=== PATIENT | male | born 1945 | race Caucasian/White ===

== ENCOUNTER 2017-04-22 21:02 | Inpatient (IN) | payer MEDICARE, MEDICAID ==
[2017-04-22] VITALS: BP 165/82
[~2017-04-22] VITALS: Ht 182.9 cm; Wt 86.0 kg
[~2017-04-22 21:02] MED LIST: AMLO5TAB4 PO; ASCO500C15 PO; ATRO2DRO4; BACL10TA PO; CLON-529 PO; DILT120C88 PO; DOCU-28 PO; GABA-532 PO; HYDR-565 PO; MAGN400T6 PO; METF500T PO; METH1TAB32 PO; METO-467 PO; MULT-685 PO; NAPR-1115 PO; OMEP20TA23 PO; POLY119P2 PO; PRAV20TA PO; PSYL3.4P5 PO; SACC250C; VENL37.55 PO; temazepam 15mg capsule PO PRN
[2017-04-22] MEDS ORDERED: vancomycin/NS 1 GM ADD-VANTAGE 250 ML IV ONE (21:35)
[2017-04-22] MEDS ORDERED: piperacillin/tazo 3.375gm/50ml 50 ML IV ONE (21:35)
[2017-04-22 22:03] LABS: BASOPHILS % (AUTO) 0.2 % (0-1); EOSINOPHILS # (AUTO) 0.7 X10'3 (0-0.9); EOSINOPHILS % (AUTO) 6.6 % (0-6); HEMATOCRIT 22.2 % (42.0-52.0); HEMOGLOBIN 7.1 g/dl (14.0-17.9); LYMPHOCYTES # (AUTO) 1.1 X10'3 (1.1-4.8); LYMPHOCYTES % (AUTO) 9.5 % (21-51); MEAN CORPUSCULAR HGB CONC 31.9 % (33.0-36.5); MEAN CORPUSCULAR VOLUME 75.3 FL (78-98); MEAN PLATELET VOLUME 6.4 FL (7.4-10.4); MONOCYTES # (AUTO) 0.9 X10'3 (0-0.9); MONOCYTES % (AUTO) 8.1 % (2-12); NEUTROPHILS # (AUTO) 8.4 X10'3 (1.8-7.7); NEUTROPHILS % (AUTO) 75.6 % (42-75); PLATELET COUNT 284 X10'3 (140-440); RED BLOOD COUNT 2.95 X10'6 (4.70-6.10); WHITE BLOOD COUNT 11.1 X10'3 (4.5-11.0)
[2017-04-22 22:14] LABS: PARTIAL THROMBOPLASTIN TIME 30 SECONDS (22-32)
[2017-04-22 22:25] LABS: ALANINE AMINOTRANSFERASE 35 U/L (12-78); ALBUMIN 1.9 G/DL (3.4-5.0); ALBUMIN/GLOBULIN RATIO 0.4 (1.1-1.5); ALKALINE PHOSPHATASE 100 IU/L (46-116); ANION GAP 8 (8-16); ASPARTATE AMINO TRANSFERASE 39 U/L (10-37); BILIRUBIN,TOTAL 0.3 MG/DL (0.1-1.0); BLOOD UREA NITROGEN 31 MG/DL (7-18); BUN/CREATININE RATIO 12.4 (5.4-32.0); CALCIUM 8.7 MG/DL (8.5-10.1); CHLORIDE 102 MMOL/L (99-107); GLUCOSE 235 MG/DL (70-104); MAGNESIUM 2.2 MG/DL (1.5-2.4); SODIUM 137 MMOL/L (135-145); TOTAL CARBON DIOXIDE 26.9 MMOL/L (24-32); TOTAL PROTEIN 7.3 G/DL (6.4-8.2); eGFR 25 ML/MIN
[2017-04-22] MEDS: normal saline 1000ml 1,000 ML IV SCH (22:43)
[2017-04-22] MEDS ORDERED: baclofen 10mg tablet PO PRN (22:45)
[2017-04-22] MEDS ORDERED: insulin Lispro (HumaLOG) vial - multi-dose SQ SCH (22:45)
[2017-04-22] MEDS ORDERED: bisacodyl 10mg suppository rectal RC PRN (22:45)
[2017-04-22] MEDS ORDERED: dextrose ORAL solution 15 GM/59 ML bottle PO PRN ×2 (22:45)
[2017-04-22] MEDS ORDERED: metoclopramide 5 mg/ml inj IV PRN (22:45)
[2017-04-22] MEDS ORDERED: acetaminophen 325mg tablet PO PRN ×2 (22:45)
[2017-04-22] MEDS ORDERED: diphenhydrAMINE 50 mg/ml inj IV PRN (22:45)
[2017-04-22] MEDS ORDERED: MESSAGE TO PHARMACY PO ONE (22:45)
[2017-04-22] MEDS ORDERED: mag hydrox/Alum hydrox/simeth 30ml oral suspension PO PRN (22:45)
[2017-04-22] MEDS ORDERED: acetaminophen 650mg rectal suppository RC PRN (22:45)
[2017-04-22] MEDS ORDERED: diphenhydrAMINE 25mg capsule PO PRN (22:45)
[2017-04-22] MEDS ORDERED: HYDROcodone/acetaminophen 10/325mg tab PO PRN (22:45)
[2017-04-22] MEDS ORDERED: ondansetron/PF 4mg/2ml inj IV PRN (22:45)
[2017-04-22] MEDS ORDERED: morphine sulfate 8 MG/ML SYRINGE IV PRN ×2 (22:45)
[2017-04-22] MEDS ORDERED: magnesium hydroxide 30ml (MOM) UD suspension PO PRN (22:45)
[2017-04-22] MEDS ORDERED: glucagon, human recombinant 1mg kit SUBCUT PRN (22:45)
[2017-04-22] MEDS ORDERED: dextrose 50%-water 50ml dispensing syringe IV PRN ×2 (22:45)
[2017-04-22 23:04] LABS: HEMOGLOBIN A1C 7.2 % (4.5-6.2)
[2017-04-22 23:16] LABS: PHOSPHORUS 4.2 MG/DL (2.3-4.5)
[2017-04-23] VITALS (11 sets, daily range): BP systolic 105–142; BP diastolic 47–66
[2017-04-23] MEDS ORDERED: HYDROcodone/acetaminophen 10/325mg tab PO SCH (02:00)
[2017-04-23 06:04] LABS: BASOPHILS % (AUTO) 0 % (0-1); EOSINOPHILS # (AUTO) 0.7 X10'3 (0-0.9); HEMATOCRIT 22.8 % (42.0-52.0); HEMOGLOBIN 7.1 g/dl (14.0-17.9); LYMPHOCYTES # (AUTO) 0.3 X10'3 (1.1-4.8); LYMPHOCYTES % (AUTO) 2.2 % (21-51); MEAN CORPUSCULAR HEMOGLOBIN 23.4 PG (27.0-31.0); MEAN CORPUSCULAR HGB CONC 30.9 % (33.0-36.5); MEAN CORPUSCULAR VOLUME 75.8 FL (78-98); MEAN PLATELET VOLUME 6.5 FL (7.4-10.4); MONOCYTES # (AUTO) 0.6 X10'3 (0-0.9); MONOCYTES % (AUTO) 3.9 % (2-12); NEUTROPHILS # (AUTO) 13.2 X10'3 (1.8-7.7); NEUTROPHILS % (AUTO) 88.9 % (42-75); PLATELET COUNT 300 X10'3 (140-440); RED BLOOD COUNT 3.01 X10'6 (4.70-6.10); WHITE BLOOD COUNT 14.9 X10'3 (4.5-11.0)
[2017-04-23 07:02] LABS: ALANINE AMINOTRANSFERASE 37 U/L (12-78); ALBUMIN 1.8 G/DL (3.4-5.0); ALBUMIN/GLOBULIN RATIO 0.4 (1.1-1.5); ALKALINE PHOSPHATASE 90 IU/L (46-116); ANION GAP 10 (8-16); ASPARTATE AMINO TRANSFERASE 28 U/L (10-37); BILIRUBIN,TOTAL 0.4 MG/DL (0.1-1.0); BLOOD UREA NITROGEN 30 MG/DL (7-18); BUN/CREATININE RATIO 11.7 (5.4-32.0); CALCIUM 8.5 MG/DL (8.5-10.1); CHLORIDE 106 MMOL/L (99-107); CREATININE 2.56 MG/DL (0.60-1.10); GLUCOSE 111 MG/DL (70-104); POTASSIUM 5.2 MMOL/L (3.5-5.1); SODIUM 140 MMOL/L (135-145); TOTAL CARBON DIOXIDE 23.7 MMOL/L (24-32); TOTAL PROTEIN 6.9 G/DL (6.4-8.2); eGFR 25 ML/MIN
[2017-04-23] MEDS ORDERED: dexamethasone inj 10 MG in normal saline 100ml IV soln 100 ML IV ONE (07:30)
[2017-04-23] MEDS: pantoprazole 40mg Tablet.DR PO SCH (07:30)
[2017-04-23] MEDS ORDERED: diphenhydrAMINE 50 mg/ml inj IV ONE (07:30)
[2017-04-23] MEDS ORDERED: acetaminophen 325mg tablet PO ONE (07:30)
[2017-04-23] MEDS: amLODIPine 5mg tablet PO SCH ×2 (08:00→22:15)
[2017-04-23] MEDS: psyllium seed 3.4 gm packet PO SCH (08:00)
[2017-04-23] MEDS: loratadine 10mg tablet PO SCH (08:00)
[2017-04-23] MEDS: diltiazem CD 120mg capsule (once-daily) PO SCH (08:00)
[2017-04-23] MEDS: gabapentin 300mg capsule PO SCH ×4 (08:00→21:00)
[2017-04-23] MEDS: docusate sod 100mg capsule PO SCH ×2 (08:00→20:00)
[2017-04-23] MEDS ORDERED: vancomycin/NS 1 GM ADD-VANTAGE 250 ML IV SCH (08:00)
[2017-04-23] MEDS: cloNIDine 0.1 mg tablet PO SCH ×2 (08:00→22:15)
[2017-04-23] MEDS: metoprolol tartrate 50mg tablet PO SCH ×2 (08:00→22:15)
[2017-04-23] MEDS: piperacillin-tazo 2.25gm/50ml 50 ML IV SCH ×2 (09:08→16:00)
[2017-04-23] MEDS: baclofen 10mg tablet PO SCH ×4 (09:08→22:18)
[2017-04-23] MEDS: normal saline 1000ml 1,000 ML IV SCH (09:11)
[2017-04-23] MEDS: venlafaxine XR 37.5mg cap (Q24H) PO SCH (09:11)
[2017-04-23] MEDS ORDERED: furosemide 40mg/4ml inj IV ONE (09:30)
[2017-04-23 09:45] LABS: PRE OP PARTIAL THROMB. TIME 30 SECONDS (22-35); PROTHROMBIN TIME 10.2 SECONDS (9.0-12.0)
[2017-04-23] MEDS: vancomycin inj 1,250 MG in normal saline 250ml IV soln 250 ML IV SCH ×2 (11:00→22:15)
[2017-04-23 14:27] LABS: ABG BASE EXCESS -2.6 mmol/L (-2.0-3.0); ABG HCO3 22.8 mmol/L (22.0-26.0); ABG PCO2 (T) 41.9 mmHg (35.0-48.0); ABG PH (T) 7.353 (7.350-7.450); ABG PO2 (T) 71.6 mmHg (83-108); ALLEN'S TEST Positive; FO2Hb 92.1 % (94-100); RESPIRATORY RATE (OBSERVED) 16 b/min; TOTAL HEMOGLOBIN 6.5 G/dl (14.0-18.0)
[2017-04-23] MEDS: pravastatin 10mg tablet PO SCH (22:16)
[2017-04-24] VITALS (21 sets, daily range): BP systolic 119–156; BP diastolic 52–81
[2017-04-24] MEDS: piperacillin-tazo 2.25gm/50ml 50 ML IV SCH ×2 (00:30→07:35)
[2017-04-24] MEDS: diltiazem CD 120mg capsule (once-daily) PO SCH (07:37)
[2017-04-24] MEDS: metoprolol tartrate 50mg tablet PO SCH ×2 (07:37→20:00)
[2017-04-24] MEDS: baclofen 10mg tablet PO SCH ×3 (07:37→20:56)
[2017-04-24] MEDS: gabapentin 300mg capsule PO SCH ×3 (07:37→20:56)
[2017-04-24] MEDS: cloNIDine 0.1 mg tablet PO SCH ×2 (07:37→20:00)
[2017-04-24] MEDS: amLODIPine 5mg tablet PO SCH ×2 (07:37→20:11)
[2017-04-24] MEDS: loratadine 10mg tablet PO SCH (07:37)
[2017-04-24] MEDS: pantoprazole 40mg Tablet.DR PO SCH (07:37)
[2017-04-24] MEDS: docusate sod 100mg capsule PO SCH ×2 (07:39→20:18)
[2017-04-24] MEDS: psyllium seed 3.4 gm packet PO SCH (07:40)
[2017-04-24] MEDS: venlafaxine XR 37.5mg cap (Q24H) PO SCH (07:43)
[2017-04-24 08:30] LABS: BASOPHILS % (AUTO) 0 % (0-1); EOSINOPHILS # (AUTO) 0.3 X10'3 (0-0.9); EOSINOPHILS % (AUTO) 1.7 % (0-6); HEMATOCRIT 27.8 % (42.0-52.0); LYMPHOCYTES # (AUTO) 0.4 X10'3 (1.1-4.8); LYMPHOCYTES % (AUTO) 2.4 % (21-51); MEAN CORPUSCULAR HEMOGLOBIN 25.3 PG (27.0-31.0); MEAN CORPUSCULAR HGB CONC 32.5 % (33.0-36.5); MEAN CORPUSCULAR VOLUME 77.9 FL (78-98); MEAN PLATELET VOLUME 6.6 FL (7.4-10.4); MONOCYTES # (AUTO) 0.7 X10'3 (0-0.9); MONOCYTES % (AUTO) 4.7 % (2-12); NEUTROPHILS # (AUTO) 14.3 X10'3 (1.8-7.7); NEUTROPHILS % (AUTO) 91.2 % (42-75); PLATELET COUNT 297 X10'3 (140-440); RED BLOOD COUNT 3.56 X10'6 (4.70-6.10); WHITE BLOOD COUNT 15.7 X10'3 (4.5-11.0)
[2017-04-24 08:45] LABS: ALANINE AMINOTRANSFERASE 27 U/L (12-78); ALBUMIN 1.8 G/DL (3.4-5.0); ALBUMIN/GLOBULIN RATIO 0.3 (1.1-1.5); ALKALINE PHOSPHATASE 75 IU/L (46-116); ANION GAP 10 (8-16); ASPARTATE AMINO TRANSFERASE 13 U/L (10-37); BILIRUBIN,TOTAL 0.8 MG/DL (0.1-1.0); BLOOD UREA NITROGEN 40 MG/DL (7-18); BUN/CREATININE RATIO 15.6 (5.4-32.0); CHLORIDE 107 MMOL/L (99-107); CREATININE 2.57 MG/DL (0.60-1.10); GLUCOSE 166 MG/DL (70-104); POTASSIUM 4.2 MMOL/L (3.5-5.1); SODIUM 141 MMOL/L (135-145); TOTAL CARBON DIOXIDE 24.1 MMOL/L (24-32); TOTAL PROTEIN 7.2 G/DL (6.4-8.2); eGFR 25 ML/MIN
[2017-04-24] MEDS: vancomycin inj 1,250 MG in normal saline 250ml IV soln 250 ML IV SCH (08:56)
[2017-04-24] MEDS: normal saline 1000ml 1,000 ML IV SCH (08:57)
[2017-04-24] MEDS ORDERED: cefepime 1GM/100ML NS ADD-VANTAGE BAG IV SCH (10:15)
[2017-04-24] MEDS ORDERED: cloNIDine hcl/PF 100mcg/ml inj ONE (15:36)
[2017-04-24] MEDS ORDERED: desflurane 240ml liquid inh. IH ONE (16:30)
[2017-04-24] MEDS ORDERED: midazolam 2 mg/2 ml injection ONE (16:43)
[2017-04-24] MEDS ORDERED: fentaNYL/PF 50MCG/1 ML 2ML syringe ONE (16:43)
[2017-04-24] MEDS ORDERED: LIDOcaine 2% 5ml jelly ONE (16:45)
[2017-04-24] MEDS ORDERED: normal saline 1000ml 1,000 ML IV SCH (17:22)
[2017-04-24] MEDS ORDERED: meperidine/PF 25mg/ml syringe IV PRN (17:25)
[2017-04-24] MEDS ORDERED: ondansetron/PF 4mg/2ml inj IV PRN (17:25)
[2017-04-24] MEDS ORDERED: meperidine/PF 25mg/ml syringe IV ONE (17:25)
[2017-04-24] MEDS ORDERED: morphine sulfate 8 MG/ML SYRINGE IV PRN (17:25)
[2017-04-24] MEDS ORDERED: proCHLORperazine 10 MG/2 ml inj IV PRN (17:25)
[2017-04-24] MEDS ORDERED: LIDOcaine 2% (20mg/ml) 5ml vial ONE (18:04)
[2017-04-24] MEDS ORDERED: rocuronium 10mg/ml inj IV ONE (18:04)
[2017-04-24] MEDS ORDERED: propofol inj 20 ML IV ONE (18:04)
[2017-04-24] MEDS ORDERED: VANCOMYCIN LEVEL IV ONE (19:30)
[2017-04-24] MEDS: lactobacillus rhamnosus 10,000 MMU CELLS/CAPSULE PO SCH (20:12)
[2017-04-24] MEDS: pravastatin 10mg tablet PO SCH (20:57)
[2017-04-25] VITALS: BP 147/61
[2017-04-25] MEDS: normal saline 1000ml 1,000 ML IV SCH ×3 (00:05→10:09)
[2017-04-25 04:00] VITALS: BP 151/73
[2017-04-25 05:59] LABS: BASOPHILS % (AUTO) 0.3 % (0-1); EOSINOPHILS # (AUTO) 0.4 X10'3 (0-0.9); EOSINOPHILS % (AUTO) 3.6 % (0-6); HEMATOCRIT 27.6 % (42.0-52.0); HEMOGLOBIN 8.9 g/dl (14.0-17.9); LYMPHOCYTES # (AUTO) 0.8 X10'3 (1.1-4.8); MEAN CORPUSCULAR HEMOGLOBIN 25.2 PG (27.0-31.0); MEAN CORPUSCULAR HGB CONC 32.1 % (33.0-36.5); MEAN CORPUSCULAR VOLUME 78.4 FL (78-98); MEAN PLATELET VOLUME 6.5 FL (7.4-10.4); MONOCYTES # (AUTO) 0.8 X10'3 (0-0.9); MONOCYTES % (AUTO) 8.2 % (2-12); NEUTROPHILS % (AUTO) 79.9 % (42-75); PLATELET COUNT 283 X10'3 (140-440); RED BLOOD COUNT 3.52 X10'6 (4.70-6.10); RED CELL DISTRIBUTION WIDTH 17.1 % (11.5-14.5); WHITE BLOOD COUNT 9.9 X10'3 (4.5-11.0)
[2017-04-25 06:28] LABS: ALANINE AMINOTRANSFERASE 19 U/L (12-78); ALBUMIN 1.8 G/DL (3.4-5.0); ALBUMIN/GLOBULIN RATIO 0.4 (1.1-1.5); ALKALINE PHOSPHATASE 59 IU/L (46-116); ANION GAP 10 (8-16); ASPARTATE AMINO TRANSFERASE 12 U/L (10-37); BILIRUBIN,TOTAL 0.4 MG/DL (0.1-1.0); BLOOD UREA NITROGEN 38 MG/DL (7-18); BUN/CREATININE RATIO 16.2 (5.4-32.0); CALCIUM 8.5 MG/DL (8.5-10.1); CHLORIDE 110 MMOL/L (99-107); CREATININE 2.34 MG/DL (0.60-1.10); GLUCOSE 98 MG/DL (70-104); POTASSIUM 3.9 MMOL/L (3.5-5.1); SODIUM 144 MMOL/L (135-145); TOTAL CARBON DIOXIDE 24.2 MMOL/L (24-32); TOTAL PROTEIN 6.9 G/DL (6.4-8.2); eGFR 27 ML/MIN
[2017-04-25 07:00] VITALS: BP 132/63
[2017-04-25] MEDS: loratadine 10mg tablet PO SCH (07:25)
[2017-04-25] MEDS: pantoprazole 40mg Tablet.DR PO SCH (07:25)
[2017-04-25] MEDS: docusate sod 100mg capsule PO SCH ×2 (07:25→19:46)
[2017-04-25] MEDS: venlafaxine XR 37.5mg cap (Q24H) PO SCH (07:25)
[2017-04-25] MEDS: lactobacillus rhamnosus 10,000 MMU CELLS/CAPSULE PO SCH ×2 (07:25→17:23)
[2017-04-25] MEDS: gabapentin 300mg capsule PO SCH ×4 (07:26→22:05)
[2017-04-25] MEDS: baclofen 10mg tablet PO SCH ×4 (07:26→22:05)
[2017-04-25] MEDS: amLODIPine 5mg tablet PO SCH ×2 (07:26→19:46)
[2017-04-25] MEDS: psyllium seed 3.4 gm packet PO SCH (07:26)
[2017-04-25] MEDS: metoprolol tartrate 50mg tablet PO SCH ×2 (08:00→19:46)
[2017-04-25] MEDS: diltiazem CD 120mg capsule (once-daily) PO SCH (08:00)
[2017-04-25] MEDS: cloNIDine 0.1 mg tablet PO SCH ×2 (08:00→19:46)
[2017-04-25] MEDS: CEFEPIME 2 GM in NS 100ml IV.SOLN 100 ML IV SCH (09:08)
[2017-04-25] MEDS: vancomycin inj 1,250 MG in normal saline 250ml IV soln 250 ML IV SCH (10:09)
[2017-04-25 11:00] VITALS: BP 128/66
[2017-04-25] MEDS: HYDROcodone/acetaminophen 5mg/325mg tablet PO PRN (13:03)
[2017-04-25 19:00] VITALS: BP 136/59
[2017-04-25] MEDS: pravastatin 10mg tablet PO SCH (22:05)
[2017-04-26] VITALS: BP 130/69
[2017-04-26] MEDS: normal saline 1000ml 1,000 ML IV SCH ×3 (00:43→16:49)
[2017-04-26 05:21] LABS: BASOPHILS % (AUTO) 0.1 % (0-1); EOSINOPHILS # (AUTO) 0.6 X10'3 (0-0.9); EOSINOPHILS % (AUTO) 4.8 % (0-6); HEMATOCRIT 26.5 % (42.0-52.0); HEMOGLOBIN 8.5 g/dl (14.0-17.9); LYMPHOCYTES # (AUTO) 0.7 X10'3 (1.1-4.8); LYMPHOCYTES % (AUTO) 6.2 % (21-51); MEAN CORPUSCULAR HGB CONC 32.1 % (33.0-36.5); MEAN CORPUSCULAR VOLUME 77.7 FL (78-98); MEAN PLATELET VOLUME 6.8 FL (7.4-10.4); MONOCYTES % (AUTO) 8.5 % (2-12); NEUTROPHILS # (AUTO) 9.7 X10'3 (1.8-7.7); NEUTROPHILS % (AUTO) 80.4 % (42-75); PLATELET COUNT 243 X10'3 (140-440); RED BLOOD COUNT 3.41 X10'6 (4.70-6.10)
[2017-04-26 05:39] LABS: ALANINE AMINOTRANSFERASE 15 U/L (12-78); ALBUMIN 1.8 G/DL (3.4-5.0); ALBUMIN/GLOBULIN RATIO 0.4 (1.1-1.5); ALKALINE PHOSPHATASE 58 IU/L (46-116); ANION GAP 9 (8-16); ASPARTATE AMINO TRANSFERASE 17 U/L (10-37); BILIRUBIN,TOTAL 0.4 MG/DL (0.1-1.0); BLOOD UREA NITROGEN 35 MG/DL (7-18); BUN/CREATININE RATIO 17.3 (5.4-32.0); CALCIUM 8.1 MG/DL (8.5-10.1); CHLORIDE 109 MMOL/L (99-107); CREATININE 2.02 MG/DL (0.60-1.10); GLUCOSE 166 MG/DL (70-104); POTASSIUM 3.4 MMOL/L (3.5-5.1); SODIUM 139 MMOL/L (135-145); TOTAL CARBON DIOXIDE 20.6 MMOL/L (24-32); TOTAL PROTEIN 6.5 G/DL (6.4-8.2); eGFR 33 ML/MIN
[2017-04-26] MEDS: pantoprazole 40mg Tablet.DR PO SCH (07:30)
[2017-04-26 08:00] VITALS: BP 132/81
[2017-04-26] MEDS: diltiazem CD 120mg capsule (once-daily) PO SCH (09:11)
[2017-04-26] MEDS: psyllium seed 3.4 gm packet PO SCH (09:11)
[2017-04-26] MEDS: CEFEPIME 2 GM in NS 100ml IV.SOLN 100 ML IV SCH (09:11)
[2017-04-26] MEDS: baclofen 10mg tablet PO SCH ×4 (09:11→21:49)
[2017-04-26] MEDS: loratadine 10mg tablet PO SCH (09:11)
[2017-04-26] MEDS: lactobacillus rhamnosus 10,000 MMU CELLS/CAPSULE PO SCH ×2 (09:11→17:49)
[2017-04-26] MEDS: amLODIPine 5mg tablet PO SCH ×2 (09:12→21:48)
[2017-04-26] MEDS: cloNIDine 0.1 mg tablet PO SCH ×2 (09:12→21:49)
[2017-04-26] MEDS: gabapentin 300mg capsule PO SCH ×4 (09:12→21:48)
[2017-04-26] MEDS: docusate sod 100mg capsule PO SCH ×2 (09:12→21:49)
[2017-04-26] MEDS: metoprolol tartrate 50mg tablet PO SCH ×2 (09:12→21:49)
[2017-04-26] MEDS: vancomycin inj 1,250 MG in normal saline 250ml IV soln 250 ML IV SCH (11:32)
[2017-04-26] MEDS: venlafaxine XR 37.5mg cap (Q24H) PO SCH (11:33)
[2017-04-26] MEDS ORDERED: potassium Cl 20 mEq SR tablet PO PRN (11:45)
[2017-04-26] MEDS ORDERED: magnesium 2GM in 50ml NS 50 ML IV PRN (11:45)
[2017-04-26] MEDS ORDERED: potassium Cl 40MEQ/NS 500ml 500 ML IV PRN ×2 (11:45)
[2017-04-26] MEDS ORDERED: magnesium 4gm in 100ml NS 100 ML IV PRN (11:45)
[2017-04-26] MEDS ORDERED: magnesium Cl slow-release 64mg tablet PO PRN (11:45)
[2017-04-26 12:00] VITALS: BP 123/59
[2017-04-26] MEDS: protein shake 8oz. (237ml) PO SCH ×2 (13:00→18:00)
[2017-04-26] MEDS: potassium Cl 20 mEq SR tablet PO PRN (15:39)
[2017-04-26 18:00] VITALS: BP 127/64
[2017-04-27] VITALS: BP 116/58
[2017-04-27] MEDS: normal saline 1000ml 1,000 ML IV SCH ×3 (00:24→22:43)
[2017-04-27] MEDS: potassium Cl 20 mEq SR tablet PO PRN (00:24)
[2017-04-27 07:04] LABS: BASOPHILS % (AUTO) 0.3 % (0-1); EOSINOPHILS # (AUTO) 0.6 X10'3 (0-0.9); EOSINOPHILS % (AUTO) 6.1 % (0-6); HEMATOCRIT 25.9 % (42.0-52.0); HEMOGLOBIN 8.4 g/dl (14.0-17.9); LYMPHOCYTES # (AUTO) 0.9 X10'3 (1.1-4.8); LYMPHOCYTES % (AUTO) 10.1 % (21-51); MEAN CORPUSCULAR HEMOGLOBIN 25.3 PG (27.0-31.0); MEAN CORPUSCULAR HGB CONC 32.5 % (33.0-36.5); MEAN CORPUSCULAR VOLUME 77.9 FL (78-98); MEAN PLATELET VOLUME 6.5 FL (7.4-10.4); MONOCYTES % (AUTO) 11.2 % (2-12); NEUTROPHILS # (AUTO) 6.6 X10'3 (1.8-7.7); NEUTROPHILS % (AUTO) 72.3 % (42-75); PLATELET COUNT 220 X10'3 (140-440); RED BLOOD COUNT 3.32 X10'6 (4.70-6.10); RED CELL DISTRIBUTION WIDTH 17.8 % (11.5-14.5); WHITE BLOOD COUNT 9.2 X10'3 (4.5-11.0)
[2017-04-27 07:22] LABS: ALANINE AMINOTRANSFERASE 19 U/L (12-78); ALBUMIN 1.8 G/DL (3.4-5.0); ALBUMIN/GLOBULIN RATIO 0.4 (1.1-1.5); ALKALINE PHOSPHATASE 63 IU/L (46-116); ANION GAP 9 (8-16); ASPARTATE AMINO TRANSFERASE 15 U/L (10-37); BILIRUBIN,TOTAL 0.3 MG/DL (0.1-1.0); BLOOD UREA NITROGEN 30 MG/DL (7-18); BUN/CREATININE RATIO 15.1 (5.4-32.0); CHLORIDE 113 MMOL/L (99-107); CREATININE 1.99 MG/DL (0.60-1.10); GLUCOSE 160 MG/DL (70-104); MAGNESIUM 1.8 MG/DL (1.5-2.4); POTASSIUM 4.1 MMOL/L (3.5-5.1); SODIUM 144 MMOL/L (135-145); TOTAL CARBON DIOXIDE 22.1 MMOL/L (24-32); TOTAL PROTEIN 6.2 G/DL (6.4-8.2); eGFR 33 ML/MIN
[2017-04-27 07:26] LABS: VANCOMYCIN,TROUGH 34.8 UG/ML (6.0-14.0)
[2017-04-27] MEDS ORDERED: VANCOMYCIN LEVEL IV ONE (07:30)
[2017-04-27 07:37] VITALS: BP 119/56
[2017-04-27] MEDS: protein shake 8oz. (237ml) PO SCH ×3 (08:00→19:00)
[2017-04-27] MEDS: multivitamins, therapeutics tablet PO SCH (08:00)
[2017-04-27] MEDS: CEFEPIME 2 GM in NS 100ml IV.SOLN 100 ML IV SCH (08:00)
[2017-04-27] MEDS: docusate sod 100mg capsule PO SCH ×2 (09:32→19:49)
[2017-04-27] MEDS: psyllium seed 3.4 gm packet PO SCH (09:32)
[2017-04-27] MEDS: lactobacillus rhamnosus 10,000 MMU CELLS/CAPSULE PO SCH ×2 (09:32→17:01)
[2017-04-27] MEDS: metoprolol tartrate 50mg tablet PO SCH ×2 (09:33→19:48)
[2017-04-27] MEDS: diltiazem CD 120mg capsule (once-daily) PO SCH (09:33)
[2017-04-27] MEDS: baclofen 10mg tablet PO SCH ×4 (09:33→22:05)
[2017-04-27] MEDS: loratadine 10mg tablet PO SCH (09:33)
[2017-04-27] MEDS: atorvastatin 10mg tablet PO SCH (09:33)
[2017-04-27] MEDS: pantoprazole 40mg Tablet.DR PO SCH (09:33)
[2017-04-27] MEDS: cloNIDine 0.1 mg tablet PO SCH ×2 (09:33→19:48)
[2017-04-27] MEDS: gabapentin 300mg capsule PO SCH ×4 (10:02→22:04)
[2017-04-27] MEDS: venlafaxine XR 37.5mg cap (Q24H) PO SCH (10:02)
[2017-04-27] MEDS: amLODIPine 5mg tablet PO SCH ×2 (10:03→19:48)
[2017-04-27 11:00] VITALS: BP 123/54
[2017-04-27 19:30] VITALS: BP 138/57
[2017-04-27] MEDS: HYDROcodone/acetaminophen 5mg/325mg tablet PO PRN (19:50)
[2017-04-28] VITALS: BP 116/52
[2017-04-28 04:20] LABS: MAGNESIUM 1.5 MG/DL (1.5-2.4); POTASSIUM 3.5 MMOL/L (3.5-5.1)
[2017-04-28 07:00] VITALS: BP 126/60
[2017-04-28] MEDS ORDERED: VANCOMYCIN LEVEL IV ONE (07:30)
[2017-04-28] MEDS: diltiazem CD 120mg capsule (once-daily) PO SCH (07:42)
[2017-04-28] MEDS: lactobacillus rhamnosus 10,000 MMU CELLS/CAPSULE PO SCH (07:42)
[2017-04-28] MEDS: pantoprazole 40mg Tablet.DR PO SCH (07:42)
[2017-04-28] MEDS: gabapentin 300mg capsule PO SCH ×2 (07:42→13:37)
[2017-04-28] MEDS: atorvastatin 10mg tablet PO SCH (07:42)
[2017-04-28] MEDS: docusate sod 100mg capsule PO SCH (07:42)
[2017-04-28] MEDS: metoprolol tartrate 50mg tablet PO SCH (07:42)
[2017-04-28] MEDS: loratadine 10mg tablet PO SCH (07:42)
[2017-04-28] MEDS: amLODIPine 5mg tablet PO SCH (07:42)
[2017-04-28] MEDS: baclofen 10mg tablet PO SCH ×2 (07:42→13:37)
[2017-04-28] MEDS: cloNIDine 0.1 mg tablet PO SCH (07:42)
[2017-04-28] MEDS: venlafaxine XR 37.5mg cap (Q24H) PO SCH (07:42)
[2017-04-28] MEDS: CEFEPIME 2 GM in NS 100ml IV.SOLN 100 ML IV SCH (07:43)
[2017-04-28] MEDS: psyllium seed 3.4 gm packet PO SCH (07:46)
[2017-04-28] MEDS: protein shake 8oz. (237ml) PO SCH ×2 (08:00→13:00)
[2017-04-28] MEDS ORDERED: vancomycin inj 1,250 MG in normal saline 250ml IV soln 250 ML IV SCH (08:00)
[2017-04-28] MEDS: multivitamins, therapeutics tablet PO SCH (08:50)
[2017-04-28] MEDS: normal saline 1000ml 1,000 ML IV SCH (08:50)
[2017-04-28 11:00] VITALS: BP 120/56
[2017-04-28 11:23] LABS: CHLORIDE 112 MMOL/L (99-107); GLUCOSE 153 MG/DL (70-104); SODIUM 142 MMOL/L (135-145)
[2017-04-28 11:24] LABS: ALBUMIN 1.8 G/DL (3.4-5.0); ANION GAP 11 (8-16); BLOOD UREA NITROGEN 30 MG/DL (7-18); BUN/CREATININE RATIO 15.1 (5.4-32.0); CALCIUM 7.7 MG/DL (8.5-10.1); CREATININE 1.99 MG/DL (0.60-1.10); TOTAL CARBON DIOXIDE 18.8 MMOL/L (24-32); eGFR 33 ML/MIN
[2017-05-02] MEDS ORDERED: VANCOMYCIN LEVEL IV ONE (07:30)
== END 2017-04-28 16:30 | DRG 239 ==
LOC: ER 21:03 → ED HOLD 22:43 → EDBEDREQ 22:57 → CMPBEDREQ 23:56 → SUR 3N 04-23 00:48
PROVIDERS: ADMIT Family Medicine; ATTEND Family Medicine
PROC: 30233N1 Transfusion of Nonautologous Red Blood Cells into Peripheral Vein, Percutaneous Approach (ICD-10-PCS; 2017-04-23)
PROC: 30233N1 Transfusion of Nonautologous Red Blood Cells into Peripheral Vein, Percutaneous Approach (ICD-10-PCS; 2017-04-24)
PROC: 0Y6H0Z1 Detachment at Right Lower Leg, High, Open Approach (ICD-10-PCS; principal; 2017-04-24 16:30)
DX: E11.52 Type 2 diabetes mellitus with diabetic peripheral angiopathy with gangrene (principal); E43 Unspecified severe protein-calorie malnutrition; N17.0 Acute kidney failure with tubular necrosis; G93.40 Encephalopathy, unspecified; L89.109 Pressure ulcer of unspecified part of back, unspecified stage; E11.22 Type 2 diabetes mellitus with diabetic chronic kidney disease; G83.9 Paralytic syndrome, unspecified; E11.621 Type 2 diabetes mellitus with foot ulcer; L03.115 Cellulitis of right lower limb; M86.8X6 Other osteomyelitis, lower leg; B95.62 Methicillin resistant Staphylococcus aureus infection as the cause of diseases classified elsewhere; B96.20 Unspecified Escherichia coli [E. coli] as the cause of diseases classified elsewhere; E11.65 Type 2 diabetes mellitus with hyperglycemia; L97.519 Non-pressure chronic ulcer of other part of right foot with unspecified severity; N18.9 Chronic kidney disease, unspecified; I12.9 Hypertensive chronic kidney disease with stage 1 through stage 4 chronic kidney disease, or unspecified chronic kidney disease; D63.8 Anemia in other chronic diseases classified elsewhere; E11.69 Type 2 diabetes mellitus with other specified complication; Z68.25 Body mass index [BMI] 25.0-25.9, adult; Z74.01 Bed confinement status; Z89.512 Acquired absence of left leg below knee; Z79.899 Other long term (current) drug therapy
CPT/HCPCS: 36415; 36600; 70450; 71010; 80048; 80053; 80202; 82803; 82948; 83036; 83605; 83735; 83880; 84100; 84145; 85018; 85025; 85610; 85730; 86870; 86880; 86885; 86900; 86901; 86902; 86905; 86922; 87040; 87070; 93005; 96374; 99285; A4315; A4649; A6209; A6212; A6213; A6222; A6223; A6255; A6446; A6449; A7000; J0692; J0735; J1100; J1200; J1940; J2001; J2175; J2250; J2543; J2704; J3010; J3370; J7030; J7120; P9016

== ENCOUNTER 2017-05-10 01:47 | Emergency (ER) | payer MEDICARE, MEDICAID ==
[~2017-05-10] VITALS: Ht 172.7 cm; Wt 85.0 kg
[~2017-05-10 01:47] MED LIST changes: -AMLO5TAB4 PO; -ASCO500C15 PO; -ATRO2DRO4; -CLON-529 PO; -DILT120C88 PO; -DOCU-28 PO; -MAGN400T6 PO; -METF500T PO; -METH1TAB32 PO; -METO-467 PO; -MULT-685 PO; -NAPR-1115 PO; -OMEP20TA23 PO; -POLY119P2 PO; -PRAV20TA PO; -PSYL3.4P5 PO; -SACC250C; -VENL37.55 PO; -temazepam 15mg capsule PO PRN
[2017-05-10] MEDS ORDERED: tranexamic acid inj. 1,000 MG in normal saline 100ml IV soln 90 ML IV ONE (01:50)
[2017-05-10] MEDS ORDERED: normal saline 1000ML IV soln IV ONE (01:50)
[2017-05-10] MEDS ORDERED: tranexamic acid 100mg/ml inj. ONE (02:22)
[2017-05-10 02:35] LABS: BASOPHILS # (AUTO) 0.1 X10'3 (0-0.2); BASOPHILS % (AUTO) 0.9 % (0-1); EOSINOPHILS # (AUTO) 0.4 X10'3 (0-0.9); EOSINOPHILS % (AUTO) 7.8 % (0-6); HEMATOCRIT 27.6 % (42.0-52.0); HEMOGLOBIN 8.9 g/dl (14.0-17.9); LYMPHOCYTES # (AUTO) 1.1 X10'3 (1.1-4.8); LYMPHOCYTES % (AUTO) 19.3 % (21-51); MEAN CORPUSCULAR HEMOGLOBIN 25.6 PG (27.0-31.0); MEAN CORPUSCULAR HGB CONC 32.3 % (33.0-36.5); MEAN CORPUSCULAR VOLUME 79.2 FL (78-98); MEAN PLATELET VOLUME 8.3 FL (7.4-10.4); MONOCYTES # (AUTO) 0.7 X10'3 (0-0.9); MONOCYTES % (AUTO) 11.9 % (2-12); NEUTROPHILS # (AUTO) 3.3 X10'3 (1.8-7.7); NEUTROPHILS % (AUTO) 60.1 % (42-75); PLATELET COUNT 135 X10'3 (140-440); RED BLOOD COUNT 3.49 X10'6 (4.70-6.10); WHITE BLOOD COUNT 5.6 X10'3 (4.5-11.0)
[2017-05-10 02:45] LABS: PROTHROMBIN TIME 10.2 SECONDS (9.0-12.0)
[2017-05-10 02:51] LABS: ALANINE AMINOTRANSFERASE 15 U/L (12-78); ALBUMIN 2.6 G/DL (3.4-5.0); ALBUMIN/GLOBULIN RATIO 0.5 (1.1-1.5); ALKALINE PHOSPHATASE 75 IU/L (46-116); ANION GAP 8 (8-16); ASPARTATE AMINO TRANSFERASE 14 U/L (10-37); BILIRUBIN,TOTAL 0.4 MG/DL (0.1-1.0); BLOOD UREA NITROGEN 39 MG/DL (7-18); BUN/CREATININE RATIO 16.5 (5.4-32.0); CALCIUM 8.8 MG/DL (8.5-10.1); CHLORIDE 105 MMOL/L (99-107); CREATININE 2.37 MG/DL (0.60-1.10); GLUCOSE 98 MG/DL (70-104); MAGNESIUM 1.8 MG/DL (1.5-2.4); POTASSIUM 4.6 MMOL/L (3.5-5.1); SODIUM 142 MMOL/L (135-145); TOTAL CARBON DIOXIDE 29.3 MMOL/L (24-32); TOTAL PROTEIN 7.6 G/DL (6.4-8.2); eGFR 27 ML/MIN
[2017-05-10 02:52] LABS: UA COLLECTION TYPE FOLEY CATH
[2017-05-10 03:03] LABS: BACTERIA,URINE 1+ /HPF (Neg); RBC,URINE TNTC /HPF (0-2); SQUAMOUS EPITHELIAL CELL,UR NONE SEEN /LPF (FEW); WBC,URINE 50-100 /HPF (0-4)
[2017-05-10 03:04] LABS: MUCUS STRANDS NONE SEEN /LPF (Neg)
[2017-05-10 03:05] LABS: WBC CLUMPS,URINE MODERATE /HPF (NEGATIVE)
[2017-05-10] MEDS ORDERED: CEPH500C5 PO (03:53)
[2017-05-10] MEDS ORDERED: CefTRIAXone 2gm/NS 100ml IVPB 100 ML IV ONE (03:55)
[2017-05-10 05:51] VITALS: BP 145/61
== END 2017-05-10 05:53 | disposition home or self-care (01) ==
LOC: ER 01:48
DX: N39.0 Urinary tract infection, site not specified (principal); R31.9 Hematuria, unspecified; I10 Essential (primary) hypertension; E11.9 Type 2 diabetes mellitus without complications; Z86.14 Personal history of Methicillin resistant Staphylococcus aureus infection
CPT/HCPCS: 36415; 80053; 81001; 83735; 84145; 85025; 85610; 87077; 87088; 87186; 96361; 96374; 96375; 99284; A4315; J0696; J7030

== ENCOUNTER 2017-07-01 10:30 | Inpatient (IN) | payer MEDICARE, OTHER, MEDICAID ==
[2017-07-01] VITALS (17 sets, daily range): BP systolic 107–170; BP diastolic 43–96
[~2017-07-01] VITALS: Ht 121.9 cm; Wt 86.8 kg
[~2017-07-01 10:30] MED LIST changes: +CEPH500C5 PO
[2017-07-01] MEDS ORDERED: vancomycin inj 1,500 MG in normal saline 300ml IV soln IV ONE (12:46)
[2017-07-01] MEDS ORDERED: cefazolin/dext.iso 2gm/50ml 50 ML IV ONE (12:50)
[2017-07-01] MEDS ORDERED: famotidine 20mg tablet PO ONE (12:50)
[2017-07-01] MEDS ORDERED: ringers solution, lacted 1,000 ML IV SCH (12:50)
[2017-07-01] MEDS ORDERED: FERR325T28 PO (13:00)
[2017-07-01] MEDS ORDERED: DOCU-28 PO (13:00)
[2017-07-01] MEDS ORDERED: EFF37.5XRC PO (13:00)
[2017-07-01] MEDS ORDERED: ASCO500C15 PO (13:00)
[2017-07-01] MEDS ORDERED: ACET-2119 PO (13:00)
[2017-07-01] MEDS ORDERED: PSYL1PAC9 PO (13:00)
[2017-07-01] MEDS ORDERED: ATOR40TA PO (13:00)
[2017-07-01] MEDS ORDERED: METO50TA17 PO (13:00)
[2017-07-01] MEDS ORDERED: DILT120C88 PO (13:00)
[2017-07-01] MEDS ORDERED: METH1TAB32 PO (13:00)
[2017-07-01] MEDS ORDERED: OMEP20TA5 PO (13:00)
[2017-07-01] MEDS ORDERED: LORA10TA7 PO (13:00)
[2017-07-01] MEDS ORDERED: SACC250C PO (13:00)
[2017-07-01] MEDS ORDERED: AMLO2.5T2 PO (13:00)
[2017-07-01] MEDS ORDERED: magnesium hydroxide 30ml (MOM) UD suspension PO PRN (13:05)
[2017-07-01] MEDS ORDERED: ondansetron/PF 4mg/2ml inj IV PRN (13:05)
[2017-07-01] MEDS ORDERED: bisacodyl 10mg suppository rectal RC PRN (13:05)
[2017-07-01] MEDS ORDERED: HYDROmorphone inj. 0.5 MG/0.5 ML DISP.SYRIN IV PRN ×2 (13:05)
[2017-07-01] MEDS ORDERED: oxyCODONE/APAP 10/325mg tablet PO PRN (13:05)
[2017-07-01] MEDS ORDERED: diphenhydrAMINE 25mg capsule PO PRN ×2 (13:05)
[2017-07-01] MEDS ORDERED: ePHEDrine 50MG/ML INJ. ONE (13:15)
[2017-07-01] MEDS ORDERED: sevoflurane 250ml liquid IH ONE (13:15)
[2017-07-01] MEDS ORDERED: fentaNYL /PF 50mcg/ml 5ml ampule ONE (13:16)
[2017-07-01] MEDS ORDERED: rocuronium 10mg/ml inj IV ONE (13:25)
[2017-07-01] MEDS ORDERED: propofol inj 20 ML IV ONE (13:25)
[2017-07-01] MEDS ORDERED: LIDOcaine 2% (20mg/ml) 5ml vial ONE (13:25)
[2017-07-01] MEDS ORDERED: glycopyrrolate 0.2mg/ml inj ONE (14:51)
[2017-07-01] MEDS ORDERED: ondansetron/PF 4mg/2ml inj ONE (14:51)
[2017-07-01] MEDS ORDERED: neostigmine methylsulfate 1 MG/ML 10ml vial ONE (14:51)
[2017-07-01] MEDS: potassium cl 20mEq in 1/2 NS 1,000 ML IV SCH (16:16)
[2017-07-01] MEDS: baclofen 10mg tablet PO SCH ×2 (16:39→20:51)
[2017-07-01 16:40] LABS: eGFR 27 ML/MIN
[2017-07-01] MEDS: ceFAZolin 2gm in dextrose, iso 50 ML IV SCH (17:09)
[2017-07-01] MEDS: oxyCODONE/APAP 10/325mg tablet PO PRN ×2 (17:22→20:59)
[2017-07-01] MEDS: sennosides 8.6mg tablet PO SCH (20:48)
[2017-07-01] MEDS: metoprolol tartrate 50mg tablet PO SCH (20:49)
[2017-07-01] MEDS: gabapentin 300mg capsule PO SCH (20:49)
[2017-07-01] MEDS: amLODIPine 5mg tablet PO SCH (20:50)
[2017-07-01] MEDS: ascorbic acid 500mg tablet PO SCH (20:50)
[2017-07-01] MEDS: docusate sod 100mg capsule PO SCH (20:50)
[2017-07-01] MEDS: atorvastatin 20mg tablet PO SCH (20:53)
[2017-07-01] MEDS: lactobacillus rhamnosus 10,000 MMU CELLS/CAPSULE PO SCH (20:59)
[2017-07-02] MEDS: ceFAZolin 2gm in dextrose, iso 50 ML IV SCH (00:18)
[2017-07-02] MEDS: potassium cl 20mEq in 1/2 NS 1,000 ML IV SCH ×2 (00:18→18:58)
[2017-07-02 02:06] VITALS: BP 125/69
[2017-07-02] MEDS ORDERED: ringers solution, lacted 1,000 ML IV SCH (05:00)
[2017-07-02 05:30] LABS: BASOPHILS % (AUTO) 0.1 % (0-1); EOSINOPHILS # (AUTO) 0.4 X10'3 (0-0.9); EOSINOPHILS % (AUTO) 6.1 % (0-6); HEMATOCRIT 28.5 % (42.0-52.0); HEMOGLOBIN 9.3 g/dl (14.0-17.9); LYMPHOCYTES # (AUTO) 0.3 X10'3 (1.1-4.8); LYMPHOCYTES % (AUTO) 4.5 % (21-51); MEAN CORPUSCULAR HEMOGLOBIN 26.7 PG (27.0-31.0); MEAN CORPUSCULAR HGB CONC 32.5 % (33.0-36.5); MEAN CORPUSCULAR VOLUME 82.1 FL (78-98); MEAN PLATELET VOLUME 8.1 FL (7.4-10.4); MONOCYTES # (AUTO) 0.6 X10'3 (0-0.9); MONOCYTES % (AUTO) 9.3 % (2-12); NEUTROPHILS # (AUTO) 4.9 X10'3 (1.8-7.7); PLATELET COUNT 140 X10'3 (140-440); RED BLOOD COUNT 3.47 X10'6 (4.70-6.10); RED CELL DISTRIBUTION WIDTH 21.1 % (11.5-14.5); WHITE BLOOD COUNT 6.1 X10'3 (4.5-11.0)
[2017-07-02] MEDS ORDERED: famotidine 20mg tablet PO ONE (05:30)
[2017-07-02] MEDS ORDERED: vancomycin inj 1,500 MG in normal saline 300ml IV soln IV ONE (05:30)
[2017-07-02] MEDS ORDERED: cefazolin/dext.iso 2gm/50ml 50 ML IV ONE ×2 (05:30→12:45)
[2017-07-02 05:47] LABS: ANION GAP 13 (8-16); CHLORIDE 102 MMOL/L (99-107); POTASSIUM 4.7 MMOL/L (3.5-5.1); SODIUM 139 MMOL/L (135-145); TOTAL CARBON DIOXIDE 24.2 MMOL/L (24-32)
[2017-07-02 06:00] VITALS: BP 114/59
[2017-07-02] MEDS: docusate sod 100mg capsule PO SCH (07:34)
[2017-07-02] MEDS: lactobacillus rhamnosus 10,000 MMU CELLS/CAPSULE PO SCH ×2 (07:35→20:00)
[2017-07-02] MEDS: loratadine 10mg tablet PO SCH (07:35)
[2017-07-02] MEDS: diltiazem CD 120mg capsule (once-daily) PO SCH (07:35)
[2017-07-02] MEDS: ascorbic acid 500mg tablet PO SCH ×2 (07:35→20:00)
[2017-07-02] MEDS: pantoprazole 40mg Tablet.DR PO SCH (07:35)
[2017-07-02] MEDS: gabapentin 300mg capsule PO SCH (07:35)
[2017-07-02] MEDS: multivitamins, therapeutics tablet PO SCH (07:35)
[2017-07-02] MEDS: venlafaxine XR 37.5mg cap (Q24H) PO SCH (07:36)
[2017-07-02] MEDS: baclofen 10mg tablet PO SCH ×3 (07:36→16:52)
[2017-07-02] MEDS: psyllium seed 3.4 gm packet PO SCH (07:37)
[2017-07-02] MEDS: amLODIPine 5mg tablet PO SCH ×2 (07:37→20:00)
[2017-07-02] MEDS: metoprolol tartrate 50mg tablet PO SCH ×2 (07:37→20:00)
[2017-07-02] MEDS ORDERED: enoxaparin 40mg/0.4ml syringe SQ SCH (08:00)
[2017-07-02] MEDS ORDERED: methenamine hippurate 1gm tablet PO SCH (08:00)
[2017-07-02 08:03] LABS: HEMOGLOBIN A1C 6.7 % (4.5-6.2)
[2017-07-02] MEDS: oxyCODONE/APAP 10/325mg tablet PO PRN (08:48)
[2017-07-02 10:00] VITALS: BP 115/44
[2017-07-02] MEDS ORDERED: VANCOMYCIN LEVEL IV ONE (12:30)
[2017-07-02] MEDS: vancomycin inj 1,250 MG in normal saline 250ml IV soln 250 ML IV SCH (13:44)
[2017-07-02] MEDS: NUT.TX.GLUC.INTOLER,LAC-FR,REG (BOOST GLUCOSE CONTROL) 237 ML PO SCH ×2 (13:52→18:00)
[2017-07-02] MEDS ORDERED: enoxaparin 30mg/0.3ml syringe SQ SCH (15:19)
[2017-07-02 15:29] VITALS: BP 136/46
[2017-07-02] MEDS: acetaminophen 325mg tablet PO PRN (15:39)
[2017-07-02] MEDS ORDERED: naloxone 0.4 mg/ml inj ONE (16:07)
[2017-07-02] MEDS ORDERED: naloxone 0.4 mg/ml inj IV ONE ×2 (16:10)
[2017-07-02 18:43] VITALS: BP 148/58
[2017-07-02] MEDS: atorvastatin 20mg tablet PO SCH (21:00)
[2017-07-02] MEDS: sennosides 8.6mg tablet PO SCH (21:00)
[2017-07-02] MEDS ORDERED: metoclopramide 5 mg/ml inj IV PRN (22:25)
[2017-07-02] MEDS ORDERED: proCHLORperazine 10 MG/2 ml inj IV PRN (22:30)
[2017-07-02 22:41] LABS: ABG BASE EXCESS -7.5 mmol/L (-2.0-3.0); ABG HCO3 19.5 mmol/L (22.0-26.0); ABG OXYGEN SATURATION 94.6 % (95-98); ABG PCO2 (T) 47.1 mmHg (35.0-48.0); ABG PH (T) 7.237 (7.350-7.450); ABG PO2 (T) 88.7 mmHg (83-108); FCOHb 0.2 % (0.5-1.5); FLOW 15 L/min; FMetHb 0.1 % (0.3-1.12); FO2Hb 94.3 % (94-100); PATIENT TEMPERATURE 37.3; RESPIRATORY RATE (OBSERVED) 22 b/min; TOTAL HEMOGLOBIN 9.6 G/dl (14.0-18.0)
[2017-07-02 22:54] LABS: BASOPHILS % (AUTO) 0.1 % (0-1); EOSINOPHILS # (AUTO) 0.3 X10'3 (0-0.9); HEMATOCRIT 27.3 % (42.0-52.0); LYMPHOCYTES # (AUTO) 0.5 X10'3 (1.1-4.8); LYMPHOCYTES % (AUTO) 4.9 % (21-51); MEAN CORPUSCULAR HEMOGLOBIN 26.9 PG (27.0-31.0); MEAN CORPUSCULAR HGB CONC 32.9 % (33.0-36.5); MEAN CORPUSCULAR VOLUME 81.8 FL (78-98); MEAN PLATELET VOLUME 7.7 FL (7.4-10.4); MONOCYTES # (AUTO) 0.7 X10'3 (0-0.9); NEUTROPHILS # (AUTO) 8.4 X10'3 (1.8-7.7); PLATELET COUNT 135 X10'3 (140-440); RED BLOOD COUNT 3.33 X10'6 (4.70-6.10); RED CELL DISTRIBUTION WIDTH 20.9 % (11.5-14.5); WHITE BLOOD COUNT 9.9 X10'3 (4.5-11.0)
[2017-07-02] MEDS ORDERED: albuterol 2.5 MG/3 ML nebule ONE (22:54)
[2017-07-02] MEDS: albuterol 2.5 MG/3 ML nebule NEB SCH (22:56)
[2017-07-02 23:02] VITALS: BP 139/60
[2017-07-02 23:02] LABS: ALBUMIN 2.6 G/DL (3.4-5.0); ANION GAP 15 (8-16); BLOOD UREA NITROGEN 53 MG/DL (7-18); BUN/CREATININE RATIO 16.5 (5.4-32.0); CALCIUM 8.2 MG/DL (8.5-10.1); CHLORIDE 102 MMOL/L (99-107); CREATININE 3.22 MG/DL (0.60-1.10); GLUCOSE 195 MG/DL (70-104); POTASSIUM 4.5 MMOL/L (3.5-5.1); SODIUM 136 MMOL/L (135-145); TOTAL CARBON DIOXIDE 19.2 MMOL/L (24-32); eGFR 19 ML/MIN
[2017-07-02] MEDS ORDERED: cefepime 2g/NS 100ml ADVANTAGE 100 ML IV ONE (23:38)
[2017-07-02] MEDS ORDERED: cefepime 2gm inj IV SCH (23:40)
[2017-07-02] MEDS ORDERED: CEFEPIME 1 GM IV ONE (23:50)
[2017-07-02] MEDS: sodium chloride 0.45% 1,000 ML IV SCH (23:58)
[2017-07-03] VITALS (8 sets, daily range): BP systolic 134–160; BP diastolic 46–150
[2017-07-03] MEDS: docusate sod 100mg capsule PO SCH ×3 (00:19→21:18)
[2017-07-03 01:00] LABS: CLARITY,URINE CLOUDY (Clear); COLOR,URINE YELLOW (Yellow); GLUCOSE, URINE NEGATIVE (Neg); KETONES,URINE NEGATIVE (Neg); LEUKOCYTE ESTERASE ,URINE LARGE (Neg); NITRITES, URINE POSITIVE (Neg); OCCULT BLOOD,URINE MODERATE (Neg); PH,URINE 5.5 (4.8-8.0); PROTEIN,URINE 30 mg/dl (Neg); UROBILINOGEN,URINE 0.2 E.U/dL (0.2-1.0)
[2017-07-03 01:08] LABS: UA COLLECTION TYPE FOLEY CATH; WBC,URINE TNTC /HPF (0-4)
[2017-07-03 01:09] LABS: BACTERIA,URINE 4+ /HPF (Neg); RBC,URINE 20-50 /HPF (0-2); SQUAMOUS EPITHELIAL CELL,UR FEW /LPF (FEW)
[2017-07-03] MEDS: albuterol 2.5 MG/3 ML nebule NEB SCH ×6 (04:06→23:54)
[2017-07-03] MEDS: acetaminophen 325mg tablet PO PRN (04:37)
[2017-07-03 06:32] LABS: BASOPHILS % (AUTO) 0.1 % (0-1); EOSINOPHILS # (AUTO) 0.1 X10'3 (0-0.9); EOSINOPHILS % (AUTO) 0.6 % (0-6); HEMATOCRIT 25.3 % (42.0-52.0); HEMOGLOBIN 8.5 g/dl (14.0-17.9); LYMPHOCYTES # (AUTO) 0.4 X10'3 (1.1-4.8); LYMPHOCYTES % (AUTO) 3.5 % (21-51); MEAN CORPUSCULAR HEMOGLOBIN 27.2 PG (27.0-31.0); MEAN CORPUSCULAR HGB CONC 33.5 % (33.0-36.5); MEAN CORPUSCULAR VOLUME 81.2 FL (78-98); MEAN PLATELET VOLUME 8.1 FL (7.4-10.4); MONOCYTES # (AUTO) 0.9 X10'3 (0-0.9); NEUTROPHILS # (AUTO) 9.4 X10'3 (1.8-7.7); NEUTROPHILS % (AUTO) 87.8 % (42-75); PLATELET COUNT 121 X10'3 (140-440); RED BLOOD COUNT 3.12 X10'6 (4.70-6.10); RED CELL DISTRIBUTION WIDTH 19.9 % (11.5-14.5); WHITE BLOOD COUNT 10.8 X10'3 (4.5-11.0)
[2017-07-03] MEDS: loratadine 10mg tablet PO SCH (08:00)
[2017-07-03] MEDS: multivitamins, therapeutics tablet PO SCH (08:00)
[2017-07-03] MEDS: ascorbic acid 500mg tablet PO SCH ×2 (08:00→21:17)
[2017-07-03] MEDS: psyllium seed 3.4 gm packet PO SCH (08:00)
[2017-07-03] MEDS: metoprolol tartrate 50mg tablet PO SCH ×2 (08:00→21:17)
[2017-07-03] MEDS: pantoprazole 40mg Tablet.DR PO SCH (08:00)
[2017-07-03] MEDS: amLODIPine 5mg tablet PO SCH ×2 (08:00→21:17)
[2017-07-03] MEDS: venlafaxine XR 37.5mg cap (Q24H) PO SCH (08:00)
[2017-07-03] MEDS: lactobacillus rhamnosus 10,000 MMU CELLS/CAPSULE PO SCH ×2 (08:00→21:18)
[2017-07-03] MEDS: NUT.TX.GLUC.INTOLER,LAC-FR,REG (BOOST GLUCOSE CONTROL) 237 ML PO SCH ×3 (08:00→18:00)
[2017-07-03] MEDS: diltiazem CD 120mg capsule (once-daily) PO SCH (08:00)
[2017-07-03] MEDS: enoxaparin 30mg/0.3ml syringe SQ SCH (08:13)
[2017-07-03] MEDS ORDERED: dextrose ORAL solution 15 GM/59 ML bottle PO PRN ×2 (10:00)
[2017-07-03] MEDS ORDERED: dextrose 50%-water 50ml dispensing syringe IV PRN ×2 (10:00)
[2017-07-03] MEDS ORDERED: MESSAGE TO PHARMACY PO ONE (10:00)
[2017-07-03] MEDS ORDERED: glucagon, human recombinant 1mg kit SUBCUT PRN (10:00)
[2017-07-03] MEDS: vancomycin inj 1,250 MG in normal saline 250ml IV soln 250 ML IV SCH (13:31)
[2017-07-03] MEDS: insulin Lispro (HumaLOG) vial - multi-dose SQ SCH ×3 (15:12→19:21)
[2017-07-03] MEDS ORDERED: cefepime inj. 0.5 GM in normal saline 100ml IV soln 100 ML IV SCH (21:00)
[2017-07-03] MEDS: sennosides 8.6mg tablet PO SCH (21:00)
[2017-07-03] MEDS ORDERED: insulin glargine (Lantus) pen - multi-dose SQ SCH (21:00)
[2017-07-03] MEDS: atorvastatin 20mg tablet PO SCH (21:17)
[2017-07-03] MEDS ORDERED: cefepime 2gm inj IV SCH (23:30)
[2017-07-04] MEDS: sodium chloride 0.45% 1,000 ML IV SCH (00:10)
[2017-07-04] MEDS: acetaminophen 325mg tablet PO PRN (02:24)
[2017-07-04] MEDS: albuterol 2.5 MG/3 ML nebule NEB SCH ×3 (04:29→10:56)
[2017-07-04 06:00] VITALS: BP 134/57
[2017-07-04 06:52] LABS: BASOPHILS % (AUTO) 0.1 % (0-1); EOSINOPHILS # (AUTO) 0.4 X10'3 (0-0.9); EOSINOPHILS % (AUTO) 4.2 % (0-6); HEMATOCRIT 23.8 % (42.0-52.0); LYMPHOCYTES # (AUTO) 0.6 X10'3 (1.1-4.8); LYMPHOCYTES % (AUTO) 6.1 % (21-51); MEAN CORPUSCULAR HEMOGLOBIN 27.2 PG (27.0-31.0); MEAN CORPUSCULAR HGB CONC 33.4 % (33.0-36.5); MEAN CORPUSCULAR VOLUME 81.5 FL (78-98); MEAN PLATELET VOLUME 8.2 FL (7.4-10.4); MONOCYTES # (AUTO) 0.9 X10'3 (0-0.9); MONOCYTES % (AUTO) 9.9 % (2-12); NEUTROPHILS # (AUTO) 7.6 X10'3 (1.8-7.7); NEUTROPHILS % (AUTO) 79.7 % (42-75); PLATELET COUNT 127 X10'3 (140-440); RED BLOOD COUNT 2.93 X10'6 (4.70-6.10); RED CELL DISTRIBUTION WIDTH 20.7 % (11.5-14.5); WHITE BLOOD COUNT 9.5 X10'3 (4.5-11.0)
[2017-07-04 07:28] LABS: ALANINE AMINOTRANSFERASE 9 U/L (12-78); ALBUMIN 2.1 G/DL (3.4-5.0); ALBUMIN/GLOBULIN RATIO 0.5 (1.1-1.5); ALKALINE PHOSPHATASE 54 IU/L (46-116); ANION GAP 16 (8-16); ASPARTATE AMINO TRANSFERASE 25 U/L (10-37); BILIRUBIN,TOTAL 0.3 MG/DL (0.1-1.0); BLOOD UREA NITROGEN 61 MG/DL (7-18); BUN/CREATININE RATIO 16.3 (5.4-32.0); CALCIUM 8.1 MG/DL (8.5-10.1); CHLORIDE 106 MMOL/L (99-107); CREATININE 3.74 MG/DL (0.60-1.10); GLUCOSE 117 MG/DL (70-104); POTASSIUM 3.7 MMOL/L (3.5-5.1); SODIUM 141 MMOL/L (135-145); TOTAL CARBON DIOXIDE 19.2 MMOL/L (24-32); TOTAL PROTEIN 6.6 G/DL (6.4-8.2); eGFR 16 ML/MIN
[2017-07-04] MEDS: NUT.TX.GLUC.INTOLER,LAC-FR,REG (BOOST GLUCOSE CONTROL) 237 ML PO SCH ×2 (08:00→13:00)
[2017-07-04] MEDS: insulin Lispro (HumaLOG) vial - multi-dose SQ SCH ×2 (08:42→14:08)
[2017-07-04] MEDS: pantoprazole 40mg Tablet.DR PO SCH (08:43)
[2017-07-04] MEDS: loratadine 10mg tablet PO SCH (08:43)
[2017-07-04] MEDS: ascorbic acid 500mg tablet PO SCH (08:43)
[2017-07-04] MEDS: multivitamins, therapeutics tablet PO SCH (08:43)
[2017-07-04] MEDS: docusate sod 100mg capsule PO SCH (08:43)
[2017-07-04] MEDS: metoprolol tartrate 50mg tablet PO SCH (08:43)
[2017-07-04] MEDS: diltiazem CD 120mg capsule (once-daily) PO SCH (08:43)
[2017-07-04] MEDS: venlafaxine XR 37.5mg cap (Q24H) PO SCH (08:43)
[2017-07-04] MEDS: lactobacillus rhamnosus 10,000 MMU CELLS/CAPSULE PO SCH (08:43)
[2017-07-04] MEDS: psyllium seed 3.4 gm packet PO SCH (08:43)
[2017-07-04] MEDS: amLODIPine 5mg tablet PO SCH (08:43)
[2017-07-04] MEDS: enoxaparin 30mg/0.3ml syringe SQ SCH (08:44)
[2017-07-04 10:00] VITALS: BP 122/47
[2017-07-04] MEDS: vancomycin inj 1,250 MG in normal saline 250ml IV soln 250 ML IV SCH (14:11)
[2017-07-05] MEDS ORDERED: VANCOMYCIN LEVEL IV ONE (12:30)
== END 2017-07-04 16:57 | DRG 475 ==
LOC: UNDOADMIN 10:30 → PAS IN 10:30 → ORTHO 4S 15:50
PROVIDERS: ADMIT Orthopaedic Surgery; ATTEND Internal Medicine
PROC: 0Y6C0Z1 Detachment at Right Upper Leg, High, Open Approach (ICD-10-PCS; principal; 2017-07-01 13:10)
DX: T87.53 Necrosis of amputation stump, right lower extremity (principal); E11.52 Type 2 diabetes mellitus with diabetic peripheral angiopathy with gangrene; L89.152 Pressure ulcer of sacral region, stage 2; E11.22 Type 2 diabetes mellitus with diabetic chronic kidney disease; G82.20 Paraplegia, unspecified; Z68.43 Body mass index [BMI] 50.0-59.9, adult; E66.9 Obesity, unspecified; D64.9 Anemia, unspecified; E78.5 Hyperlipidemia, unspecified; F32.9 Major depressive disorder, single episode, unspecified; I12.9 Hypertensive chronic kidney disease with stage 1 through stage 4 chronic kidney disease, or unspecified chronic kidney disease; Y83.5 Amputation of limb(s) as the cause of abnormal reaction of the patient, or of later complication, without mention of misadventure at the time of the procedure; K21.9 Gastro-esophageal reflux disease without esophagitis; N18.9 Chronic kidney disease, unspecified; Z89.512 Acquired absence of left leg below knee; Z79.899 Other long term (current) drug therapy; Z79.82 Long term (current) use of aspirin; Y92.89 Other specified places as the place of occurrence of the external cause
CPT/HCPCS: 36415; 36600; 71045; 80048; 80051; 80053; 80202; 81001; 82565; 82803; 82948; 83036; 83605; 85018; 85025; 87070; 87077; 87088; 87186; 88300; 94640; 94760; 97163; 97530; A4620; A6212; A6213; A6222; A6250; A6449; A7000; A9270; J0690; J0692; J0780; J1650; J1815; J2001; J2310; J2405; J2704; J2710; J3010; J3370; J3490; J7030; J7120

== ENCOUNTER → 2017-07-01 12:17 | Day surgery (SDC) | payer MEDICARE, MEDICAID, OTHER ==
[~2017-07-01 12:17] MED LIST changes: +ACET-2119 PO; +AMLO2.5T2 PO; +ASCO500C15 PO; +ATOR40TA PO; +DILT120C88 PO; +DOCU-28 PO; +EFF37.5XRC PO; +FERR325T28 PO; +LORA10TA7 PO; +METH1TAB32 PO; +METO50TA17 PO; +OMEP20TA5 PO; +PSYL1PAC9 PO; +SACC250C PO; +famotidine 20mg tablet PO ONE; +ringers solution, lacted 1,000 ML IV SCH
== END | disposition home or self-care (01) ==
LOC: PAS 12:17
PROVIDERS: ATTEND Orthopaedic Surgery
DX: T87.53 Necrosis of amputation stump, right lower extremity (principal)
CPT/HCPCS: 96365; J7120

== ENCOUNTER 2017-08-06 11:54 | Inpatient (IN) | payer MEDICARE, OTHER, MEDICAID ==
[~2017-08-06] VITALS: Ht 127 cm; Wt 81.8 kg
[~2017-08-06 11:54] MED LIST changes: -famotidine 20mg tablet PO ONE; -ringers solution, lacted 1,000 ML IV SCH
[2017-08-06 14:00] LABS: BASOPHILS # (AUTO) 0.1 X10'3 (0-0.2); BASOPHILS % (AUTO) 0.5 % (0-1); EOSINOPHILS # (AUTO) 0.6 X10'3 (0-0.9); EOSINOPHILS % (AUTO) 4.6 % (0-6); HEMATOCRIT 33.4 % (35.0-45.0); HEMOGLOBIN 11.1 g/dl (12.0-16.0); LYMPHOCYTES # (AUTO) 1.1 X10'3 (1.1-4.8); LYMPHOCYTES % (AUTO) 7.9 % (21-51); MEAN CORPUSCULAR HEMOGLOBIN 27.4 PG (27.0-31.0); MEAN CORPUSCULAR HGB CONC 33.3 % (33.0-36.5); MEAN CORPUSCULAR VOLUME 82.3 FL (78-98); MONOCYTES # (AUTO) 0.9 X10'3 (0-0.9); MONOCYTES % (AUTO) 6.3 % (2-12); NEUTROPHILS # (AUTO) 11.1 X10'3 (1.8-7.7); NEUTROPHILS % (AUTO) 80.7 % (42-75); PLATELET COUNT 217 X10'3 (140-440); RED BLOOD COUNT 4.05 X10'6 (4.20-5.60); RED CELL DISTRIBUTION WIDTH 17.6 % (11.5-14.5); WHITE BLOOD COUNT 13.8 X10'3 (4.5-11.0)
[2017-08-06 14:08] LABS: INR 0.9 INR; PARTIAL THROMBOPLASTIN TIME 30 SECONDS (22-32); PROTHROMBIN TIME 9.7 SECONDS (9.0-12.0)
[2017-08-06 14:14] LABS: ALANINE AMINOTRANSFERASE 17 U/L (12-78); ALBUMIN 3.3 G/DL (3.4-5.0); ALBUMIN/GLOBULIN RATIO 0.6 (1.1-1.5); ALKALINE PHOSPHATASE 103 IU/L (46-116); ANION GAP 10 (8-16); ASPARTATE AMINO TRANSFERASE 15 U/L (10-37); BILIRUBIN,TOTAL 0.4 MG/DL (0.1-1.0); BLOOD UREA NITROGEN 34 MG/DL (7-18); BUN/CREATININE RATIO 12.7 (6.6-38.0); CALCIUM 9.8 MG/DL (8.5-10.1); CHLORIDE 103 MMOL/L (99-107); CREATININE 2.68 MG/DL (0.40-0.90); GLUCOSE 134 MG/DL (70-104); POTASSIUM 4.5 MMOL/L (3.5-5.1); SODIUM 142 MMOL/L (135-145); TOTAL CARBON DIOXIDE 28.8 MMOL/L (24-32); TOTAL PROTEIN 9.2 G/DL (6.4-8.2); eGFR 17 ML/MIN
[2017-08-06 15:04] LABS: CLARITY,URINE CLOUDY (Clear); COLOR,URINE YELLOW (Yellow); GLUCOSE, URINE NEGATIVE (Neg); KETONES,URINE NEGATIVE (Neg); LEUKOCYTE ESTERASE ,URINE LARGE (Neg); NITRITES, URINE POSITIVE (Neg); OCCULT BLOOD,URINE LARGE (Neg); PH,URINE 6.5 (4.8-8.0); PROTEIN,URINE 100 mg/dl (Neg); UROBILINOGEN,URINE 0.2 E.U/dL (0.2-1.0)
[2017-08-06 15:06] LABS: UA COLLECTION TYPE FOLEY CATH
[2017-08-06 15:27] LABS: SQUAMOUS EPITHELIAL CELL,UR FEW /LPF (FEW)
[2017-08-06 15:28] LABS: BACTERIA,URINE FEW /HPF (Neg); RBC,URINE 20-50 /HPF (0-2); WBC CLUMPS,URINE MANY /HPF (NEGATIVE); WBC,URINE TNTC /HPF (0-4)
[2017-08-06] MEDS ORDERED: MULT-38 PO (15:49)
[2017-08-06] MEDS ORDERED: ONDA4TAB6 PO (15:49)
[2017-08-06] MEDS ORDERED: POLY17PO10 PO (15:49)
[2017-08-06] MEDS ORDERED: ondansetron/PF 4mg/2ml inj IV PRN (16:45)
[2017-08-06] MEDS ORDERED: acetaminophen 325mg tablet PO PRN (16:45)
[2017-08-06] MEDS ORDERED: morphine 4 MG/ML inj SYRINge IV PRN ×2 (16:45)
[2017-08-06] MEDS ORDERED: mag hydrox/Alum hydrox/simeth 30ml oral suspension PO PRN (16:45)
[2017-08-06] MEDS ORDERED: magnesium hydroxide 30ml (MOM) UD suspension PO PRN (16:45)
[2017-08-06] MEDS ORDERED: vancomycin/NS 1 GM ADD-VANTAGE 250 ML X 1 DOSE IV ONE (16:55)
[2017-08-06] MEDS: normal saline 1000ml 1,000 ML IV SCH (17:07)
[2017-08-06] MEDS: acetaminophen 325mg tablet PO SCH (19:03)
[2017-08-06] MEDS: ferrous sulfate 325mg tablet PO SCH (19:04)
[2017-08-06] MEDS: amLODIPine 2.5mg tablet PO SCH (19:18)
[2017-08-06] MEDS: lactobacillus rhamnosus 10,000 MMU CELLS/CAPSULE PO SCH (19:18)
[2017-08-06] MEDS: gabapentin 300mg capsule PO SCH (19:18)
[2017-08-06] MEDS: metoprolol tartrate 50mg tablet PO SCH (19:18)
[2017-08-06] MEDS: HYDROcodone/acetaminophen 10/325mg tab PO SCH (19:19)
[2017-08-06] MEDS: docusate sod 100mg capsule PO SCH (19:31)
[2017-08-06] MEDS: baclofen 10mg tablet PO PRN (19:31)
[2017-08-06] MEDS: ascorbic acid 500mg tablet PO SCH (19:31)
[2017-08-06] MEDS ORDERED: ondansetron 4mg rapidly disintigrating tab PO PRN (20:00)
[2017-08-06 23:00] VITALS: BP 120/56
[2017-08-07] VITALS (15 sets, daily range): BP systolic 103–144; BP diastolic 42–70
[2017-08-07] MEDS: cefepime 1GM/NS ADD-VANTAGE 100 ML IV SCH ×4 (00:19→23:29)
[2017-08-07] MEDS: atorvastatin 20mg tablet PO SCH ×2 (00:19→20:32)
[2017-08-07] MEDS: HYDROcodone/acetaminophen 10/325mg tab PO SCH ×4 (02:00→17:22)
[2017-08-07] MEDS: acetaminophen 325mg tablet PO SCH ×4 (02:00→20:33)
[2017-08-07] MEDS: normal saline 1000ml 1,000 ML IV SCH ×3 (02:42→22:56)
[2017-08-07] MEDS: VANCOMYCIN LEVEL IV SCH (03:00)
[2017-08-07 07:10] LABS: ALBUMIN 2.8 G/DL (3.4-5.0); ANION GAP 12 (8-16); BLOOD UREA NITROGEN 34 MG/DL (7-18); BUN/CREATININE RATIO 13.4 (6.6-38.0); CALCIUM 9.2 MG/DL (8.5-10.1); CHLORIDE 106 MMOL/L (99-107); CREATININE 2.54 MG/DL (0.40-0.90); GLUCOSE 120 MG/DL (70-104); POTASSIUM 4.2 MMOL/L (3.5-5.1); SODIUM 142 MMOL/L (135-145); TOTAL CARBON DIOXIDE 24.5 MMOL/L (24-32); VANCOMYCIN,RANDOM 24.7 UG/ML; eGFR 18 ML/MIN
[2017-08-07 07:55] LABS: HEMATOCRIT 32.3 % (42.0-52.0); HEMOGLOBIN 10.6 g/dl (14.0-17.9); MEAN CORPUSCULAR HEMOGLOBIN 27.6 PG (27.0-31.0); MEAN CORPUSCULAR HGB CONC 32.9 % (33.0-36.5); MEAN PLATELET VOLUME 8.6 FL (7.4-10.4); PLATELET COUNT 151 X10'3 (140-440); RED BLOOD COUNT 3.84 X10'6 (4.70-6.10); RED CELL DISTRIBUTION WIDTH 19.5 % (11.5-14.5); WHITE BLOOD COUNT 8.5 X10'3 (4.5-11.0)
[2017-08-07] MEDS ORDERED: vancomycin/NS 1 GM ADD-VANTAGE 250 ML X 1 DOSE IV PRN (08:00)
[2017-08-07] MEDS: psyllium seed 3.4 gm packet PO SCH (08:00)
[2017-08-07] MEDS: docusate sod 100mg capsule PO SCH ×2 (08:00→20:32)
[2017-08-07] MEDS: enoxaparin 30mg/0.3ml syringe SUBCUT SCH (08:00)
[2017-08-07 09:13] LABS: ANISOCYTOSIS 2+; PLATELET ESTIMATE NORMAL; TOTAL CELLS COUNTED 100
[2017-08-07 09:14] LABS: SCHISTOCYTES FEW
[2017-08-07 09:15] LABS: TEAR DROP CELLS FEW
[2017-08-07] MEDS: pantoprazole 40mg Tablet.DR PO SCH (10:14)
[2017-08-07] MEDS: diltiazem CD 120mg capsule (once-daily) PO SCH (10:16)
[2017-08-07] MEDS: amLODIPine 2.5mg tablet PO SCH ×2 (10:16→20:31)
[2017-08-07] MEDS: metoprolol tartrate 50mg tablet PO SCH ×2 (10:17→20:32)
[2017-08-07] MEDS: ascorbic acid 500mg tablet PO SCH ×2 (10:18→20:32)
[2017-08-07] MEDS: multivitamins, therapeutics tablet PO SCH (10:19)
[2017-08-07] MEDS: ferrous sulfate 325mg tablet PO SCH ×3 (10:19→20:32)
[2017-08-07] MEDS: gabapentin 300mg capsule PO SCH ×2 (10:19→20:32)
[2017-08-07] MEDS: loratadine 10mg tablet PO SCH (10:19)
[2017-08-07] MEDS: lactobacillus rhamnosus 10,000 MMU CELLS/CAPSULE PO SCH ×2 (10:20→20:32)
[2017-08-07] MEDS: venlafaxine XR 37.5mg cap (Q24H) PO SCH (10:22)
[2017-08-07] MEDS: methenamine hippurate 1gm tablet PO SCH (11:41)
[2017-08-07] MEDS: baclofen 10mg tablet PO PRN ×2 (11:41→20:32)
[2017-08-07] MEDS ORDERED: fentaNYL/PF 50MCG/1 ML 2ML syringe IV PRN ×2 (15:45)
[2017-08-07] MEDS ORDERED: proCHLORperazine 10 MG/2 ml inj IV PRN (15:45)
[2017-08-07] MEDS ORDERED: morphine 4 MG/ML inj SYRINge IV PRN ×2 (15:45)
[2017-08-07] MEDS ORDERED: ringers solution, lacted 1,000 ML IV SCH (15:45)
[2017-08-07] MEDS ORDERED: ondansetron/PF 4mg/2ml inj IV PRN (15:45)
[2017-08-07] MEDS ORDERED: sevoflurane 250ml liquid IH ONE (15:46)
[2017-08-07] MEDS ORDERED: midazolam 2 mg/2 ml injection ONE (16:07)
[2017-08-07] MEDS ORDERED: ePHEDrine 50MG/ML INJ. ONE (16:14)
[2017-08-07] MEDS ORDERED: LIDOcaine 2% (20mg/ml) 5ml vial ONE (16:14)
[2017-08-07] MEDS ORDERED: propofol inj 20 ML IV ONE (16:14)
[2017-08-08] VITALS: BP 103/54
[2017-08-08] MEDS: baclofen 10mg tablet PO PRN ×3 (01:21→19:45)
[2017-08-08] MEDS: acetaminophen 325mg tablet PO SCH ×4 (01:21→19:44)
[2017-08-08] MEDS: HYDROcodone/acetaminophen 10/325mg tab PO SCH ×4 (02:26→19:44)
[2017-08-08] MEDS: VANCOMYCIN LEVEL IV SCH (02:29)
[2017-08-08 05:59] LABS: BASOPHILS % (AUTO) 0.3 % (0-1); EOSINOPHILS # (AUTO) 0.5 X10'3 (0-0.9); EOSINOPHILS % (AUTO) 6.9 % (0-6); HEMATOCRIT 23.8 % (42.0-52.0); HEMOGLOBIN 8.1 g/dl (14.0-17.9); LYMPHOCYTES # (AUTO) 0.6 X10'3 (1.1-4.8); LYMPHOCYTES % (AUTO) 9.3 % (21-51); MEAN CORPUSCULAR HEMOGLOBIN 28.1 PG (27.0-31.0); MEAN CORPUSCULAR HGB CONC 34.3 % (33.0-36.5); MEAN CORPUSCULAR VOLUME 81.8 FL (78-98); MEAN PLATELET VOLUME 7.9 FL (7.4-10.4); MONOCYTES # (AUTO) 0.8 X10'3 (0-0.9); MONOCYTES % (AUTO) 12.2 % (2-12); NEUTROPHILS # (AUTO) 4.7 X10'3 (1.8-7.7); NEUTROPHILS % (AUTO) 71.3 % (42-75); PLATELET COUNT 133 X10'3 (140-440); WHITE BLOOD COUNT 6.7 X10'3 (4.5-11.0)
[2017-08-08 06:25] LABS: ALBUMIN 2.4 G/DL (3.4-5.0); ANION GAP 11 (8-16); BLOOD UREA NITROGEN 30 MG/DL (7-18); BUN/CREATININE RATIO 10.9 (5.4-32.0); CALCIUM 8.4 MG/DL (8.5-10.1); CHLORIDE 109 MMOL/L (99-107); CREATININE 2.76 MG/DL (0.60-1.10); GLUCOSE 138 MG/DL (70-104); POTASSIUM 3.8 MMOL/L (3.5-5.1); SODIUM 144 MMOL/L (135-145); TOTAL CARBON DIOXIDE 24.4 MMOL/L (24-32); VANCOMYCIN,RANDOM 17.2 UG/ML; eGFR 23 ML/MIN
[2017-08-08 07:30] VITALS: BP 149/66
[2017-08-08] MEDS: docusate sod 100mg capsule PO SCH ×2 (08:00→19:44)
[2017-08-08] MEDS: venlafaxine XR 37.5mg cap (Q24H) PO SCH (09:13)
[2017-08-08] MEDS: gabapentin 300mg capsule PO SCH ×2 (09:14→19:44)
[2017-08-08] MEDS: pantoprazole 40mg Tablet.DR PO SCH (09:14)
[2017-08-08] MEDS: multivitamins, therapeutics tablet PO SCH (09:14)
[2017-08-08] MEDS: diltiazem CD 120mg capsule (once-daily) PO SCH (09:15)
[2017-08-08] MEDS: ferrous sulfate 325mg tablet PO SCH ×3 (09:15→19:52)
[2017-08-08] MEDS: lactobacillus rhamnosus 10,000 MMU CELLS/CAPSULE PO SCH ×2 (09:15→19:43)
[2017-08-08] MEDS: metoprolol tartrate 50mg tablet PO SCH ×2 (09:16→19:45)
[2017-08-08] MEDS: loratadine 10mg tablet PO SCH (09:16)
[2017-08-08] MEDS: ascorbic acid 500mg tablet PO SCH ×2 (09:17→19:43)
[2017-08-08] MEDS: amLODIPine 2.5mg tablet PO SCH ×2 (09:18→19:44)
[2017-08-08] MEDS: enoxaparin 30mg/0.3ml syringe SUBCUT SCH (09:20)
[2017-08-08] MEDS: psyllium seed 3.4 gm packet PO SCH (09:21)
[2017-08-08] MEDS: normal saline 1000ml 1,000 ML IV SCH ×2 (09:23→18:42)
[2017-08-08] MEDS: cefepime 1GM/NS ADD-VANTAGE 100 ML IV SCH (09:23)
[2017-08-08] MEDS: methenamine hippurate 1gm tablet PO SCH (09:58)
[2017-08-08 11:00] VITALS: BP 151/87
[2017-08-08] MEDS: atorvastatin 20mg tablet PO SCH (19:53)
[2017-08-08 20:00] VITALS: BP 122/52
[2017-08-09] VITALS: BP 124/64
[2017-08-09] MEDS: acetaminophen 325mg tablet PO SCH ×4 (01:42→19:22)
[2017-08-09] MEDS: HYDROcodone/acetaminophen 10/325mg tab PO SCH ×4 (01:42→19:22)
[2017-08-09] MEDS: VANCOMYCIN LEVEL IV SCH (03:00)
[2017-08-09 06:18] LABS: BASOPHILS % (AUTO) 0.6 % (0-1); EOSINOPHILS # (AUTO) 0.4 X10'3 (0-0.9); EOSINOPHILS % (AUTO) 9.7 % (0-6); HEMATOCRIT 23.7 % (42.0-52.0); HEMOGLOBIN 7.9 g/dl (14.0-17.9); LYMPHOCYTES # (AUTO) 0.7 X10'3 (1.1-4.8); MEAN CORPUSCULAR HEMOGLOBIN 28.1 PG (27.0-31.0); MEAN CORPUSCULAR HGB CONC 33.6 % (33.0-36.5); MEAN CORPUSCULAR VOLUME 83.5 FL (78-98); MEAN PLATELET VOLUME 8.3 FL (7.4-10.4); MONOCYTES # (AUTO) 0.8 X10'3 (0-0.9); MONOCYTES % (AUTO) 18.2 % (2-12); NEUTROPHILS # (AUTO) 2.5 X10'3 (1.8-7.7); NEUTROPHILS % (AUTO) 55.5 % (42-75); PLATELET COUNT 116 X10'3 (140-440); RED BLOOD COUNT 2.83 X10'6 (4.70-6.10); RED CELL DISTRIBUTION WIDTH 19.4 % (11.5-14.5); WHITE BLOOD COUNT 4.5 X10'3 (4.5-11.0)
[2017-08-09 06:44] LABS: ALBUMIN 2.3 G/DL (3.4-5.0); ANION GAP 13 (8-16); BLOOD UREA NITROGEN 27 MG/DL (7-18); BUN/CREATININE RATIO 9.7 (5.4-32.0); CALCIUM 8.2 MG/DL (8.5-10.1); CHLORIDE 109 MMOL/L (99-107); CREATININE 2.78 MG/DL (0.60-1.10); GLUCOSE 112 MG/DL (70-104); POTASSIUM 3.9 MMOL/L (3.5-5.1); SODIUM 144 MMOL/L (135-145); TOTAL CARBON DIOXIDE 22.5 MMOL/L (24-32); VANCOMYCIN,RANDOM 13.4 UG/ML; eGFR 22 ML/MIN
[2017-08-09 07:52] VITALS: BP 125/52
[2017-08-09] MEDS ORDERED: cefepime 1GM/NS ADD-VANTAGE 100 ML IV SCH (08:00)
[2017-08-09] MEDS: normal saline 1000ml 1,000 ML IV SCH ×3 (08:07→21:06)
[2017-08-09] MEDS: lactobacillus rhamnosus 10,000 MMU CELLS/CAPSULE PO SCH ×2 (08:08→19:21)
[2017-08-09] MEDS: docusate sod 100mg capsule PO SCH ×2 (08:08→19:21)
[2017-08-09] MEDS: venlafaxine XR 37.5mg cap (Q24H) PO SCH (08:08)
[2017-08-09] MEDS: diltiazem CD 120mg capsule (once-daily) PO SCH (08:08)
[2017-08-09] MEDS: ferrous sulfate 325mg tablet PO SCH ×3 (08:08→21:04)
[2017-08-09] MEDS: loratadine 10mg tablet PO SCH (08:08)
[2017-08-09] MEDS: metoprolol tartrate 50mg tablet PO SCH ×2 (08:09→19:21)
[2017-08-09] MEDS: methenamine hippurate 1gm tablet PO SCH (08:09)
[2017-08-09] MEDS: gabapentin 300mg capsule PO SCH ×2 (08:10→19:21)
[2017-08-09] MEDS: multivitamins, therapeutics tablet PO SCH (08:10)
[2017-08-09] MEDS: pantoprazole 40mg Tablet.DR PO SCH (08:10)
[2017-08-09] MEDS: enoxaparin 30mg/0.3ml syringe SUBCUT SCH (08:11)
[2017-08-09] MEDS: ascorbic acid 500mg tablet PO SCH ×2 (08:11→19:22)
[2017-08-09] MEDS: psyllium seed 3.4 gm packet PO SCH (08:16)
[2017-08-09] MEDS: amLODIPine 2.5mg tablet PO SCH ×2 (08:25→19:21)
[2017-08-09] MEDS ORDERED: vancomycin/NS 1 GM ADD-VANTAGE 250 ML X 1 DOSE IV ONE (09:00)
[2017-08-09] MEDS: baclofen 10mg tablet PO PRN ×2 (10:16→19:26)
[2017-08-09] MEDS ORDERED: cefepime inj. 1 GM in dextrose 5%-water 100 ML IV SCH (10:30)
[2017-08-09 11:00] VITALS: BP 114/48
[2017-08-09 20:00] VITALS: BP 126/54
[2017-08-09] MEDS: atorvastatin 20mg tablet PO SCH (21:03)
[2017-08-10] VITALS: BP 121/57
[2017-08-10] MEDS: HYDROcodone/acetaminophen 10/325mg tab PO SCH ×4 (02:06→21:32)
[2017-08-10] MEDS: baclofen 10mg tablet PO PRN ×3 (02:06→21:36)
[2017-08-10] MEDS: VANCOMYCIN LEVEL IV SCH (02:08)
[2017-08-10] MEDS: acetaminophen 325mg tablet PO SCH ×4 (02:08→20:00)
[2017-08-10 05:58] LABS: BASOPHILS % (AUTO) 0.4 % (0-1); EOSINOPHILS # (AUTO) 0.4 X10'3 (0-0.9); EOSINOPHILS % (AUTO) 7.3 % (0-6); HEMATOCRIT 25.7 % (42.0-52.0); HEMOGLOBIN 8.7 g/dl (14.0-17.9); LYMPHOCYTES # (AUTO) 0.7 X10'3 (1.1-4.8); LYMPHOCYTES % (AUTO) 12.6 % (21-51); MEAN CORPUSCULAR HEMOGLOBIN 27.9 PG (27.0-31.0); MEAN CORPUSCULAR HGB CONC 33.8 % (33.0-36.5); MEAN CORPUSCULAR VOLUME 82.6 FL (78-98); MEAN PLATELET VOLUME 8.1 FL (7.4-10.4); MONOCYTES # (AUTO) 0.6 X10'3 (0-0.9); MONOCYTES % (AUTO) 11.1 % (2-12); NEUTROPHILS % (AUTO) 68.6 % (42-75); PLATELET COUNT 126 X10'3 (140-440); RED BLOOD COUNT 3.11 X10'6 (4.70-6.10); RED CELL DISTRIBUTION WIDTH 19.4 % (11.5-14.5); WHITE BLOOD COUNT 5.8 X10'3 (4.5-11.0)
[2017-08-10 06:19] LABS: ALBUMIN 2.4 G/DL (3.4-5.0); ANION GAP 12 (8-16); BLOOD UREA NITROGEN 30 MG/DL (7-18); CALCIUM 8.6 MG/DL (8.5-10.1); CHLORIDE 111 MMOL/L (99-107); CREATININE 2.49 MG/DL (0.60-1.10); GLUCOSE 145 MG/DL (70-104); POTASSIUM 3.7 MMOL/L (3.5-5.1); SODIUM 144 MMOL/L (135-145); TOTAL CARBON DIOXIDE 20.7 MMOL/L (24-32); VANCOMYCIN,RANDOM 22.4 UG/ML; eGFR 25 ML/MIN
[2017-08-10] MEDS: normal saline 1000ml 1,000 ML IV SCH (06:49)
[2017-08-10 07:00] VITALS: BP 105/51
[2017-08-10] MEDS: cefepime inj. 1 GM in dextrose 5%-water 50ml 50 ML IV SCH (08:04)
[2017-08-10] MEDS: lactobacillus rhamnosus 10,000 MMU CELLS/CAPSULE PO SCH ×2 (08:06→21:31)
[2017-08-10] MEDS: methenamine hippurate 1gm tablet PO SCH (08:06)
[2017-08-10] MEDS: multivitamins, therapeutics tablet PO SCH (08:06)
[2017-08-10] MEDS: venlafaxine XR 37.5mg cap (Q24H) PO SCH (08:08)
[2017-08-10] MEDS: docusate sod 100mg capsule PO SCH ×2 (08:13→21:31)
[2017-08-10] MEDS: enoxaparin 30mg/0.3ml syringe SUBCUT SCH (08:13)
[2017-08-10] MEDS: loratadine 10mg tablet PO SCH (08:13)
[2017-08-10] MEDS: ferrous sulfate 325mg tablet PO SCH ×3 (08:13→21:31)
[2017-08-10] MEDS: gabapentin 300mg capsule PO SCH ×2 (08:13→21:31)
[2017-08-10] MEDS: metoprolol tartrate 50mg tablet PO SCH ×2 (08:14→21:32)
[2017-08-10] MEDS: ascorbic acid 500mg tablet PO SCH ×2 (08:14→21:31)
[2017-08-10] MEDS: pantoprazole 40mg Tablet.DR PO SCH (08:14)
[2017-08-10] MEDS: diltiazem CD 120mg capsule (once-daily) PO SCH (08:14)
[2017-08-10] MEDS: amLODIPine 2.5mg tablet PO SCH ×2 (08:14→21:30)
[2017-08-10] MEDS: psyllium seed 3.4 gm packet PO SCH (08:23)
[2017-08-10 12:00] VITALS: BP 105/51
[2017-08-10 20:00] VITALS: BP 127/54
[2017-08-10] MEDS: atorvastatin 20mg tablet PO SCH (21:31)
[2017-08-10] MEDS: HYDROmorphone inj. 0.5 MG/0.5 ML DISP.SYRIN IV PRN (21:32)
[2017-08-10 23:00] VITALS: BP 142/70
[2017-08-11] MEDS: normal saline 1000ml 1,000 ML IV SCH ×3 (00:45→13:00)
[2017-08-11] MEDS: HYDROmorphone inj. 0.5 MG/0.5 ML DISP.SYRIN IV PRN ×4 (01:45→23:01)
[2017-08-11] MEDS: HYDROcodone/acetaminophen 10/325mg tab PO SCH ×5 (02:00→20:13)
[2017-08-11] MEDS: acetaminophen 325mg tablet PO SCH ×4 (02:00→20:00)
[2017-08-11] MEDS: VANCOMYCIN LEVEL IV SCH (03:00)
[2017-08-11 05:27] LABS: BASOPHILS % (AUTO) 0.3 % (0-1); EOSINOPHILS # (AUTO) 0.5 X10'3 (0-0.9); EOSINOPHILS % (AUTO) 7.7 % (0-6); HEMATOCRIT 24.2 % (42.0-52.0); HEMOGLOBIN 8.1 g/dl (14.0-17.9); LYMPHOCYTES # (AUTO) 0.9 X10'3 (1.1-4.8); LYMPHOCYTES % (AUTO) 15.6 % (21-51); MEAN CORPUSCULAR HEMOGLOBIN 27.9 PG (27.0-31.0); MEAN CORPUSCULAR HGB CONC 33.5 % (33.0-36.5); MEAN CORPUSCULAR VOLUME 83.5 FL (78-98); MEAN PLATELET VOLUME 8.4 FL (7.4-10.4); MONOCYTES # (AUTO) 0.6 X10'3 (0-0.9); MONOCYTES % (AUTO) 10.9 % (2-12); NEUTROPHILS # (AUTO) 3.9 X10'3 (1.8-7.7); NEUTROPHILS % (AUTO) 65.5 % (42-75); PLATELET COUNT 128 X10'3 (140-440); RED CELL DISTRIBUTION WIDTH 18.8 % (11.5-14.5); WHITE BLOOD COUNT 5.9 X10'3 (4.5-11.0)
[2017-08-11 05:41] LABS: ALBUMIN 2.5 G/DL (3.4-5.0); ANION GAP 12 (8-16); BLOOD UREA NITROGEN 31 MG/DL (7-18); BUN/CREATININE RATIO 12.1 (5.4-32.0); CALCIUM 8.5 MG/DL (8.5-10.1); CHLORIDE 110 MMOL/L (99-107); CREATININE 2.56 MG/DL (0.60-1.10); GLUCOSE 98 MG/DL (70-104); POTASSIUM 3.8 MMOL/L (3.5-5.1); SODIUM 144 MMOL/L (135-145); TOTAL CARBON DIOXIDE 22.4 MMOL/L (24-32); VANCOMYCIN,RANDOM 18.6 UG/ML; eGFR 25 ML/MIN
[2017-08-11 07:00] VITALS: BP 138/58
[2017-08-11] MEDS: psyllium seed 3.4 gm packet PO SCH (08:00)
[2017-08-11] MEDS: lactobacillus rhamnosus 10,000 MMU CELLS/CAPSULE PO SCH ×2 (08:00→20:11)
[2017-08-11] MEDS: docusate sod 100mg capsule PO SCH ×2 (08:00→20:12)
[2017-08-11] MEDS: diltiazem CD 120mg capsule (once-daily) PO SCH (08:00)
[2017-08-11] MEDS: cefepime inj. 1 GM in dextrose 5%-water 50ml 50 ML IV SCH (08:42)
[2017-08-11] MEDS: ferrous sulfate 325mg tablet PO SCH ×3 (09:01→20:12)
[2017-08-11] MEDS: ascorbic acid 500mg tablet PO SCH ×2 (09:01→20:11)
[2017-08-11] MEDS: metoprolol tartrate 50mg tablet PO SCH ×2 (09:01→20:12)
[2017-08-11] MEDS: loratadine 10mg tablet PO SCH (09:01)
[2017-08-11] MEDS: venlafaxine XR 37.5mg cap (Q24H) PO SCH (09:01)
[2017-08-11] MEDS: amLODIPine 2.5mg tablet PO SCH ×2 (09:02→20:12)
[2017-08-11] MEDS: gabapentin 300mg capsule PO SCH ×2 (09:02→20:12)
[2017-08-11] MEDS: pantoprazole 40mg Tablet.DR PO SCH (09:02)
[2017-08-11] MEDS: multivitamins, therapeutics tablet PO SCH (09:02)
[2017-08-11] MEDS: enoxaparin 30mg/0.3ml syringe SUBCUT SCH (09:04)
[2017-08-11] MEDS: methenamine hippurate 1gm tablet PO SCH (09:05)
[2017-08-11 11:41] VITALS: BP 138/50
[2017-08-11] MEDS: baclofen 10mg tablet PO PRN ×2 (14:48→20:11)
[2017-08-11 18:00] VITALS: BP 144/66
[2017-08-11] MEDS: atorvastatin 20mg tablet PO SCH (20:12)
[2017-08-11 23:30] VITALS: BP 143/61
[2017-08-12] VITALS (19 sets, daily range): BP systolic 128–164; BP diastolic 54–85
[2017-08-12] MEDS: normal saline 1000ml 1,000 ML IV SCH ×3 (01:28→22:42)
[2017-08-12] MEDS: acetaminophen 325mg tablet PO SCH (01:29)
[2017-08-12] MEDS: HYDROcodone/acetaminophen 10/325mg tab PO SCH ×4 (01:34→20:00)
[2017-08-12] MEDS: VANCOMYCIN LEVEL IV SCH (03:00)
[2017-08-12] MEDS: HYDROmorphone inj. 0.5 MG/0.5 ML DISP.SYRIN IV PRN ×3 (03:45→23:38)
[2017-08-12] MEDS: enoxaparin 30mg/0.3ml syringe SUBCUT SCH (06:33)
[2017-08-12] MEDS: psyllium seed 3.4 gm packet PO SCH (07:06)
[2017-08-12] MEDS: ferrous sulfate 325mg tablet PO SCH ×3 (07:06→20:46)
[2017-08-12] MEDS: amLODIPine 2.5mg tablet PO SCH ×2 (07:07→20:54)
[2017-08-12] MEDS: diltiazem CD 120mg capsule (once-daily) PO SCH (07:08)
[2017-08-12] MEDS: loratadine 10mg tablet PO SCH (07:08)
[2017-08-12] MEDS: pantoprazole 40mg Tablet.DR PO SCH (07:26)
[2017-08-12] MEDS: venlafaxine XR 37.5mg cap (Q24H) PO SCH (07:26)
[2017-08-12] MEDS: methenamine hippurate 1gm tablet PO SCH (07:26)
[2017-08-12] MEDS: cefepime inj. 1 GM in dextrose 5%-water 50ml 50 ML IV SCH (07:26)
[2017-08-12] MEDS: metoprolol tartrate 50mg tablet PO SCH ×2 (07:27→20:46)
[2017-08-12] MEDS: multivitamins, therapeutics tablet PO SCH (07:27)
[2017-08-12] MEDS: ascorbic acid 500mg tablet PO SCH ×2 (07:27→20:46)
[2017-08-12] MEDS: gabapentin 300mg capsule PO SCH ×2 (07:27→20:46)
[2017-08-12 08:32] LABS: PARTIAL THROMBOPLASTIN TIME 32 SECONDS (22-32); PROTHROMBIN TIME 10.2 SECONDS (9.0-12.0)
[2017-08-12] MEDS ORDERED: sevoflurane 250ml liquid IH ONE (16:55)
[2017-08-12] MEDS ORDERED: fentaNYL/PF 50MCG/1 ML 2ML syringe ONE (16:56)
[2017-08-12] MEDS ORDERED: ringers solution, lacted 1,000 ML IV SCH (17:18)
[2017-08-12] MEDS ORDERED: hydrALAZINE 20mg/ml inj. IV PRN (17:20)
[2017-08-12] MEDS ORDERED: morphine 4 MG/ML inj SYRINge IV PRN ×2 (17:20)
[2017-08-12] MEDS ORDERED: ondansetron/PF 4mg/2ml inj IV PRN (17:20)
[2017-08-12] MEDS ORDERED: enalaprilat dihydrate 2.5mg/2ml vial IV PRN (17:20)
[2017-08-12] MEDS ORDERED: fentaNYL/PF 50MCG/1 ML 2ML syringe IV PRN ×2 (17:20)
[2017-08-12] MEDS ORDERED: propofol inj 20 ML IV ONE (17:25)
[2017-08-12] MEDS: atorvastatin 20mg tablet PO SCH (20:46)
[2017-08-12] MEDS: lactobacillus rhamnosus 10,000 MMU CELLS/CAPSULE PO SCH (20:46)
[2017-08-12] MEDS: baclofen 10mg tablet PO PRN (20:53)
[2017-08-12] MEDS: docusate sod 100mg capsule PO SCH (20:53)
[2017-08-13] MEDS: HYDROmorphone 2mg tablet PO PRN ×2 (00:44→05:44)
[2017-08-13] MEDS: HYDROcodone/acetaminophen 10/325mg tab PO SCH ×4 (02:00→20:46)
[2017-08-13] MEDS: VANCOMYCIN LEVEL IV SCH (03:00)
[2017-08-13] MEDS: baclofen 10mg tablet PO PRN ×3 (05:44→21:25)
[2017-08-13] MEDS: normal saline 1000ml 1,000 ML IV SCH ×2 (06:39→17:24)
[2017-08-13 07:18] VITALS: BP 147/63
[2017-08-13] MEDS: loratadine 10mg tablet PO SCH (07:49)
[2017-08-13] MEDS: cefepime inj. 1 GM in dextrose 5%-water 50ml 50 ML IV SCH (07:49)
[2017-08-13] MEDS: venlafaxine XR 37.5mg cap (Q24H) PO SCH (07:50)
[2017-08-13] MEDS: pantoprazole 40mg Tablet.DR PO SCH (07:51)
[2017-08-13] MEDS: diltiazem CD 120mg capsule (once-daily) PO SCH (07:51)
[2017-08-13] MEDS: gabapentin 300mg capsule PO SCH ×2 (07:51→20:44)
[2017-08-13] MEDS: ferrous sulfate 325mg tablet PO SCH ×3 (07:52→20:47)
[2017-08-13] MEDS: methenamine hippurate 1gm tablet PO SCH (07:52)
[2017-08-13] MEDS: ascorbic acid 500mg tablet PO SCH ×2 (07:53→20:47)
[2017-08-13] MEDS: multivitamins, therapeutics tablet PO SCH (07:53)
[2017-08-13] MEDS: metoprolol tartrate 50mg tablet PO SCH ×2 (07:53→20:50)
[2017-08-13] MEDS: lactobacillus rhamnosus 10,000 MMU CELLS/CAPSULE PO SCH ×2 (07:53→20:43)
[2017-08-13] MEDS: docusate sod 100mg capsule PO SCH ×2 (07:53→20:00)
[2017-08-13] MEDS: polyethylene glycol 3350 17gm powd pack PO SCH ×2 (07:54→08:00)
[2017-08-13] MEDS: aspirin 325mg tablet PO SCH (07:54)
[2017-08-13] MEDS: amLODIPine 2.5mg tablet PO SCH ×2 (07:54→20:43)
[2017-08-13] MEDS: enoxaparin 30mg/0.3ml syringe SUBCUT SCH (07:55)
[2017-08-13] MEDS: psyllium seed 3.4 gm packet PO SCH (07:56)
[2017-08-13 11:00] VITALS: BP 132/67
[2017-08-13 11:40] LABS: ALANINE AMINOTRANSFERASE 13 U/L (12-78); ALBUMIN 2.6 G/DL (3.4-5.0); ALBUMIN/GLOBULIN RATIO 0.6 (1.1-1.5); ALKALINE PHOSPHATASE 77 IU/L (46-116); ANION GAP 8 (8-16); ASPARTATE AMINO TRANSFERASE 15 U/L (10-37); BILIRUBIN,TOTAL 0.3 MG/DL (0.1-1.0); BLOOD UREA NITROGEN 30 MG/DL (7-18); BUN/CREATININE RATIO 14.2 (5.4-32.0); CALCIUM 8.8 MG/DL (8.5-10.1); CHLORIDE 107 MMOL/L (99-107); CREATININE 2.11 MG/DL (0.60-1.10); GLUCOSE 173 MG/DL (70-104); POTASSIUM 4.2 MMOL/L (3.5-5.1); SODIUM 141 MMOL/L (135-145); TOTAL CARBON DIOXIDE 25.7 MMOL/L (24-32); TOTAL PROTEIN 7.2 G/DL (6.4-8.2); eGFR 31 ML/MIN
[2017-08-13 19:30] VITALS: BP 133/56
[2017-08-13] MEDS: atorvastatin 20mg tablet PO SCH (20:47)
[2017-08-14] VITALS: BP 130/54
[2017-08-14] MEDS: baclofen 10mg tablet PO PRN ×4 (02:32→19:57)
[2017-08-14] MEDS: HYDROcodone/acetaminophen 10/325mg tab PO SCH ×4 (02:33→19:56)
[2017-08-14] MEDS: normal saline 1000ml 1,000 ML IV SCH ×2 (02:33→17:14)
[2017-08-14] MEDS: VANCOMYCIN LEVEL IV SCH (03:00)
[2017-08-14 07:03] VITALS: BP 141/63
[2017-08-14] MEDS ORDERED: vancomycin/NS 1 GM ADD-VANTAGE 250 ML X 1 DOSE IV ONE (07:45)
[2017-08-14] MEDS: polyethylene glycol 3350 17gm powd pack PO SCH (08:00)
[2017-08-14] MEDS: psyllium seed 3.4 gm packet PO SCH (08:00)
[2017-08-14] MEDS: metoprolol tartrate 50mg tablet PO SCH ×2 (08:00→19:55)
[2017-08-14] MEDS: amLODIPine 2.5mg tablet PO SCH ×2 (08:46→19:54)
[2017-08-14] MEDS: methenamine hippurate 1gm tablet PO SCH (08:46)
[2017-08-14] MEDS: ascorbic acid 500mg tablet PO SCH ×2 (08:47→19:57)
[2017-08-14] MEDS: loratadine 10mg tablet PO SCH (08:48)
[2017-08-14] MEDS: gabapentin 300mg capsule PO SCH ×2 (08:48→19:55)
[2017-08-14] MEDS: docusate sod 100mg capsule PO SCH ×2 (08:49→19:55)
[2017-08-14] MEDS: diltiazem CD 120mg capsule (once-daily) PO SCH (08:49)
[2017-08-14] MEDS: pantoprazole 40mg Tablet.DR PO SCH (08:50)
[2017-08-14] MEDS: lactobacillus rhamnosus 10,000 MMU CELLS/CAPSULE PO SCH ×2 (08:50→19:55)
[2017-08-14] MEDS: aspirin 325mg tablet PO SCH (08:51)
[2017-08-14] MEDS: venlafaxine XR 37.5mg cap (Q24H) PO SCH (08:51)
[2017-08-14] MEDS: ferrous sulfate 325mg tablet PO SCH ×3 (08:53→20:56)
[2017-08-14] MEDS: multivitamins, therapeutics tablet PO SCH (08:53)
[2017-08-14] MEDS: cefepime inj. 1 GM in dextrose 5%-water 50ml 50 ML IV SCH (08:56)
[2017-08-14] MEDS: enoxaparin 30mg/0.3ml syringe SUBCUT SCH (09:00)
[2017-08-14 11:17] VITALS: BP 122/56
[2017-08-14 19:00] VITALS: BP 131/57
[2017-08-14] MEDS: cefepime inj 2 GM in dextrose 5%-water 50ml 50 ML IV SCH (19:53)
[2017-08-14] MEDS: atorvastatin 20mg tablet PO SCH (20:56)
[2017-08-15] VITALS (16 sets, daily range): BP systolic 103–154; BP diastolic 48–73
[2017-08-15] MEDS: normal saline 1000ml 1,000 ML IV SCH ×3 (00:39→20:20)
[2017-08-15] MEDS: baclofen 10mg tablet PO PRN ×2 (02:14→20:22)
[2017-08-15] MEDS: HYDROcodone/acetaminophen 10/325mg tab PO SCH ×4 (02:14→20:21)
[2017-08-15] MEDS: VANCOMYCIN LEVEL IV SCH (02:36)
[2017-08-15] MEDS: ascorbic acid 500mg tablet PO SCH ×2 (08:00→20:20)
[2017-08-15] MEDS: polyethylene glycol 3350 17gm powd pack PO SCH (08:00)
[2017-08-15] MEDS: psyllium seed 3.4 gm packet PO SCH (08:00)
[2017-08-15] MEDS: enoxaparin 30mg/0.3ml syringe SUBCUT SCH (08:00)
[2017-08-15] MEDS: aspirin 325mg tablet PO SCH (08:30)
[2017-08-15 08:47] LABS: BASOPHILS % (AUTO) 0.1 % (0-1); EOSINOPHILS # (AUTO) 0.4 X10'3 (0-0.9); EOSINOPHILS % (AUTO) 6.5 % (0-6); LYMPHOCYTES # (AUTO) 0.8 X10'3 (1.1-4.8); LYMPHOCYTES % (AUTO) 12.4 % (21-51); MEAN CORPUSCULAR HEMOGLOBIN 28.2 PG (27.0-31.0); MEAN CORPUSCULAR HGB CONC 33.8 % (33.0-36.5); MEAN CORPUSCULAR VOLUME 83.3 FL (78-98); MONOCYTES # (AUTO) 0.7 X10'3 (0-0.9); NEUTROPHILS # (AUTO) 4.7 X10'3 (1.8-7.7); PRE OP HEMATOCRIT 24.8 % (42.0-52.0); PRE OP PLATELET COUNT 159 X10'3 (140-440); RED BLOOD COUNT 2.98 X10'6 (4.70-6.10); RED CELL DISTRIBUTION WIDTH 19.6 % (11.5-14.5)
[2017-08-15 08:58] LABS: PRE OP HEMOGLOBIN 8.4 g/dL (14.0-17.9)
[2017-08-15] MEDS: diltiazem CD 120mg capsule (once-daily) PO SCH (08:59)
[2017-08-15] MEDS: loratadine 10mg tablet PO SCH (08:59)
[2017-08-15] MEDS: docusate sod 100mg capsule PO SCH ×2 (09:00→20:22)
[2017-08-15] MEDS: lactobacillus rhamnosus 10,000 MMU CELLS/CAPSULE PO SCH ×2 (09:00→20:20)
[2017-08-15] MEDS: ferrous sulfate 325mg tablet PO SCH ×3 (09:01→20:22)
[2017-08-15] MEDS: venlafaxine XR 37.5mg cap (Q24H) PO SCH (09:01)
[2017-08-15] MEDS: metoprolol tartrate 50mg tablet PO SCH ×2 (09:01→20:22)
[2017-08-15 09:02] LABS: PRE OP PROTIME 10.1 SECONDS (9.0-12.0)
[2017-08-15] MEDS: gabapentin 300mg capsule PO SCH ×2 (09:02→20:22)
[2017-08-15] MEDS: methenamine hippurate 1gm tablet PO SCH (09:02)
[2017-08-15] MEDS: amLODIPine 5mg tablet PO SCH ×2 (09:03→20:21)
[2017-08-15] MEDS: multivitamins, therapeutics tablet PO SCH (09:04)
[2017-08-15] MEDS: pantoprazole 40mg Tablet.DR PO SCH (09:04)
[2017-08-15 09:07] LABS: ALBUMIN 2.6 G/DL (3.4-5.0); ALBUMIN/GLOBULIN RATIO 0.6 (1.1-1.5); ALKALINE PHOSPHATASE 63 IU/L (46-116); ANISOCYTOSIS 2+; BLOOD UREA NITROGEN 29 MG/DL (7-18); CALCIUM 8.4 MG/DL (8.5-10.1); CHLORIDE 110 MMOL/L (99-107); CREATININE 1.93 MG/DL (0.60-1.10); PLATELET ESTIMATE NORMAL; PRE OP ALT 15 U/L (30-65); PRE OP ANION GAP 10 (8-16); PRE OP AST 14 U/L (10-37); PRE OP BILIRUB, TOTAL 0.3 MG/DL (0.0-1.0); PRE OP GLUCOSE 94 MG/DL (70-104); PRE OP SODIUM 143 MMOL/L (135-145); TOTAL CARBON DIOXIDE 23.3 MMOL/L (24-32); TOTAL PROTEIN 6.7 G/DL (6.4-8.2); eGFR 34 ML/MIN
[2017-08-15 09:08] LABS: MICROCYTOSIS 1+; POLYCHROMASIA 2+
[2017-08-15] MEDS: cefepime inj 2 GM in dextrose 5%-water 50ml 50 ML IV SCH ×2 (09:14→20:20)
[2017-08-15] MEDS ORDERED: ringers solution, lacted 1,000 ML IV SCH (12:18)
[2017-08-15] MEDS ORDERED: ondansetron/PF 4mg/2ml inj IV PRN (12:20)
[2017-08-15] MEDS ORDERED: morphine 4 MG/ML inj SYRINge IV PRN (12:20)
[2017-08-15] MEDS ORDERED: sevoflurane 250ml liquid IH ONE (12:20)
[2017-08-15] MEDS ORDERED: proCHLORperazine 10 MG/2 ml inj IV PRN (12:20)
[2017-08-15] MEDS ORDERED: meperidine/PF 50mg/ml syringe IV PRN ×2 (12:20)
[2017-08-15] MEDS ORDERED: fentaNYL/PF 50MCG/1 ML 2ML syringe ONE (12:27)
[2017-08-15] MEDS ORDERED: midazolam 2 mg/2 ml injection ONE (12:28)
[2017-08-15] MEDS ORDERED: ePHEDrine 50MG/ML INJ. ONE (13:18)
[2017-08-15] MEDS ORDERED: LIDOcaine 2% (20mg/ml) 5ml vial ONE (13:18)
[2017-08-15] MEDS ORDERED: propofol inj 20 ML IV ONE (13:18)
[2017-08-15] MEDS: atorvastatin 20mg tablet PO SCH (20:21)
[2017-08-16] VITALS: BP 139/73
[2017-08-16] MEDS: baclofen 10mg tablet PO PRN ×4 (02:40→20:08)
[2017-08-16] MEDS: HYDROcodone/acetaminophen 10/325mg tab PO SCH ×4 (02:40→20:09)
[2017-08-16] MEDS: VANCOMYCIN LEVEL IV SCH (02:45)
[2017-08-16 04:00] VITALS: BP 136/71
[2017-08-16] MEDS: normal saline 1000ml 1,000 ML IV SCH ×2 (06:46→16:42)
[2017-08-16 07:00] VITALS: BP 139/54
[2017-08-16] MEDS: pantoprazole 40mg Tablet.DR PO SCH (07:58)
[2017-08-16] MEDS: cefepime inj 2 GM in dextrose 5%-water 50ml 50 ML IV SCH ×2 (07:58→20:07)
[2017-08-16] MEDS: diltiazem CD 120mg capsule (once-daily) PO SCH (07:58)
[2017-08-16] MEDS: lactobacillus rhamnosus 10,000 MMU CELLS/CAPSULE PO SCH ×2 (07:58→20:08)
[2017-08-16] MEDS: docusate sod 100mg capsule PO SCH ×2 (07:58→20:08)
[2017-08-16] MEDS: loratadine 10mg tablet PO SCH (07:58)
[2017-08-16] MEDS: metoprolol tartrate 50mg tablet PO SCH ×2 (07:58→20:08)
[2017-08-16] MEDS: ascorbic acid 500mg tablet PO SCH ×2 (07:59→20:08)
[2017-08-16] MEDS: ferrous sulfate 325mg tablet PO SCH ×3 (07:59→20:07)
[2017-08-16] MEDS: aspirin 325mg tablet PO SCH (07:59)
[2017-08-16] MEDS: multivitamins, therapeutics tablet PO SCH (07:59)
[2017-08-16] MEDS: gabapentin 300mg capsule PO SCH ×2 (08:00→20:07)
[2017-08-16] MEDS: enoxaparin 30mg/0.3ml syringe SUBCUT SCH (08:00)
[2017-08-16] MEDS: amLODIPine 5mg tablet PO SCH ×2 (08:00→20:08)
[2017-08-16] MEDS: methenamine hippurate 1gm tablet PO SCH (08:00)
[2017-08-16] MEDS: venlafaxine XR 37.5mg cap (Q24H) PO SCH (08:00)
[2017-08-16] MEDS: psyllium seed 3.4 gm packet PO SCH (08:01)
[2017-08-16] MEDS: polyethylene glycol 3350 17gm powd pack PO SCH (08:01)
[2017-08-16 11:00] VITALS: BP 131/57
[2017-08-16] MEDS ORDERED: bisacodyl 10mg suppository rectal RC STA (11:41)
[2017-08-16 20:00] VITALS: BP 121/81
[2017-08-16] MEDS: atorvastatin 20mg tablet PO SCH (20:08)
[2017-08-17] VITALS: BP 140/59
[2017-08-17] MEDS: baclofen 10mg tablet PO PRN ×3 (02:21→19:24)
[2017-08-17] MEDS: HYDROcodone/acetaminophen 10/325mg tab PO SCH ×4 (02:24→19:24)
[2017-08-17] MEDS: normal saline 1000ml 1,000 ML IV SCH ×3 (02:42→19:19)
[2017-08-17] MEDS: VANCOMYCIN LEVEL IV SCH (03:00)
[2017-08-17 06:08] LABS: BASOPHILS % (AUTO) 0.5 % (0-1); EOSINOPHILS # (AUTO) 0.6 X10'3 (0-0.9); EOSINOPHILS % (AUTO) 7.6 % (0-6); HEMATOCRIT 24.6 % (42.0-52.0); HEMOGLOBIN 8.2 g/dl (14.0-17.9); LYMPHOCYTES # (AUTO) 0.8 X10'3 (1.1-4.8); LYMPHOCYTES % (AUTO) 10.5 % (21-51); MEAN CORPUSCULAR HEMOGLOBIN 28.2 PG (27.0-31.0); MEAN CORPUSCULAR HGB CONC 33.5 % (33.0-36.5); MEAN CORPUSCULAR VOLUME 84.1 FL (78-98); MEAN PLATELET VOLUME 7.9 FL (7.4-10.4); MONOCYTES # (AUTO) 0.9 X10'3 (0-0.9); MONOCYTES % (AUTO) 12.2 % (2-12); NEUTROPHILS # (AUTO) 5.3 X10'3 (1.8-7.7); NEUTROPHILS % (AUTO) 69.2 % (42-75); PLATELET COUNT 172 X10'3 (140-440); RED BLOOD COUNT 2.92 X10'6 (4.70-6.10); RED CELL DISTRIBUTION WIDTH 19.8 % (11.5-14.5); WHITE BLOOD COUNT 7.7 X10'3 (4.5-11.0)
[2017-08-17 06:35] LABS: ALBUMIN 2.4 G/DL (3.4-5.0); ANION GAP 10 (8-16); BLOOD UREA NITROGEN 31 MG/DL (7-18); BUN/CREATININE RATIO 15.1 (5.4-32.0); CALCIUM 8.4 MG/DL (8.5-10.1); CHLORIDE 111 MMOL/L (99-107); CREATININE 2.05 MG/DL (0.60-1.10); GLUCOSE 130 MG/DL (70-104); POTASSIUM 3.8 MMOL/L (3.5-5.1); SODIUM 144 MMOL/L (135-145); VANCOMYCIN,RANDOM 15.4 UG/ML; eGFR 32 ML/MIN
[2017-08-17 07:00] VITALS: BP 135/54
[2017-08-17] MEDS: psyllium seed 3.4 gm packet PO SCH (08:35)
[2017-08-17] MEDS: cefepime inj 2 GM in dextrose 5%-water 50ml 50 ML IV SCH ×2 (08:35→19:20)
[2017-08-17] MEDS: venlafaxine XR 37.5mg cap (Q24H) PO SCH (08:35)
[2017-08-17] MEDS: polyethylene glycol 3350 17gm powd pack PO SCH (08:35)
[2017-08-17] MEDS: lactobacillus rhamnosus 10,000 MMU CELLS/CAPSULE PO SCH ×2 (08:36→19:23)
[2017-08-17] MEDS: multivitamins, therapeutics tablet PO SCH (08:36)
[2017-08-17] MEDS: loratadine 10mg tablet PO SCH (08:36)
[2017-08-17] MEDS: docusate sod 100mg capsule PO SCH ×2 (08:36→19:23)
[2017-08-17] MEDS: methenamine hippurate 1gm tablet PO SCH (08:36)
[2017-08-17] MEDS: pantoprazole 40mg Tablet.DR PO SCH (08:36)
[2017-08-17] MEDS: aspirin 325mg tablet PO SCH (08:36)
[2017-08-17] MEDS: ferrous sulfate 325mg tablet PO SCH ×3 (08:37→21:06)
[2017-08-17] MEDS: diltiazem CD 120mg capsule (once-daily) PO SCH (08:37)
[2017-08-17] MEDS: metoprolol tartrate 50mg tablet PO SCH ×2 (08:37→19:23)
[2017-08-17] MEDS: gabapentin 300mg capsule PO SCH ×2 (08:37→19:24)
[2017-08-17] MEDS: amLODIPine 5mg tablet PO SCH ×2 (08:37→19:24)
[2017-08-17] MEDS: ascorbic acid 500mg tablet PO SCH ×2 (08:37→19:24)
[2017-08-17] MEDS: enoxaparin 30mg/0.3ml syringe SUBCUT SCH (08:37)
[2017-08-17 11:00] VITALS: BP 117/57
[2017-08-17 14:47] LABS: CLARITY,URINE CLOUDY (Clear); COLOR,URINE YELLOW (Yellow); GLUCOSE, URINE NEGATIVE (Neg); KETONES,URINE NEGATIVE (Neg); LEUKOCYTE ESTERASE ,URINE LARGE (Neg); NITRITES, URINE NEGATIVE (Neg); OCCULT BLOOD,URINE MODERATE (Neg); PROTEIN,URINE 100 mg/dl (Neg); UROBILINOGEN,URINE 0.2 E.U/dL (0.2-1.0)
[2017-08-17 14:53] LABS: UA COLLECTION TYPE OTHER
[2017-08-17 14:59] LABS: SQUAMOUS EPITHELIAL CELL,UR FEW /LPF (FEW)
[2017-08-17 15:00] LABS: WBC,URINE TNTC /HPF (0-4); YEAST MODERATE /HPF (NEGATIVE)
[2017-08-17 15:01] LABS: BACTERIA,URINE 1+ /HPF (Neg)
[2017-08-17 19:00] VITALS: BP 153/63
[2017-08-17] MEDS: atorvastatin 20mg tablet PO SCH (21:06)
[2017-08-17 23:30] VITALS: BP 131/56
[2017-08-18] MEDS: baclofen 10mg tablet PO PRN ×4 (01:54→20:50)
[2017-08-18] MEDS: HYDROcodone/acetaminophen 10/325mg tab PO SCH ×4 (01:57→20:50)
[2017-08-18] MEDS: VANCOMYCIN LEVEL IV SCH (02:49)
[2017-08-18] MEDS: normal saline 1000ml 1,000 ML IV SCH ×2 (05:39→16:45)
[2017-08-18 05:58] LABS: BASOPHILS % (AUTO) 0.3 % (0-1); EOSINOPHILS # (AUTO) 0.6 X10'3 (0-0.9); EOSINOPHILS % (AUTO) 8.1 % (0-6); HEMATOCRIT 24.4 % (42.0-52.0); HEMOGLOBIN 8.1 g/dl (14.0-17.9); LYMPHOCYTES # (AUTO) 0.9 X10'3 (1.1-4.8); LYMPHOCYTES % (AUTO) 12.2 % (21-51); MEAN CORPUSCULAR HGB CONC 33.3 % (33.0-36.5); MEAN CORPUSCULAR VOLUME 83.9 FL (78-98); MEAN PLATELET VOLUME 7.9 FL (7.4-10.4); MONOCYTES # (AUTO) 0.9 X10'3 (0-0.9); MONOCYTES % (AUTO) 11.7 % (2-12); NEUTROPHILS % (AUTO) 67.7 % (42-75); PLATELET COUNT 179 X10'3 (140-440); RED CELL DISTRIBUTION WIDTH 19.9 % (11.5-14.5); WHITE BLOOD COUNT 7.4 X10'3 (4.5-11.0)
[2017-08-18 06:45] LABS: ALBUMIN 2.4 G/DL (3.4-5.0); ANION GAP 11 (8-16); BLOOD UREA NITROGEN 29 MG/DL (7-18); BUN/CREATININE RATIO 14.8 (5.4-32.0); CALCIUM 8.6 MG/DL (8.5-10.1); CHLORIDE 109 MMOL/L (99-107); CREATININE 1.96 MG/DL (0.60-1.10); GLUCOSE 117 MG/DL (70-104); POTASSIUM 4.2 MMOL/L (3.5-5.1); SODIUM 142 MMOL/L (135-145); TOTAL CARBON DIOXIDE 21.9 MMOL/L (24-32); eGFR 34 ML/MIN
[2017-08-18 07:30] VITALS: BP 125/61
[2017-08-18] MEDS: amLODIPine 5mg tablet PO SCH ×2 (07:36→20:49)
[2017-08-18] MEDS: loratadine 10mg tablet PO SCH (07:36)
[2017-08-18] MEDS: multivitamins, therapeutics tablet PO SCH (07:36)
[2017-08-18] MEDS: gabapentin 300mg capsule PO SCH ×2 (07:37→20:50)
[2017-08-18] MEDS: methenamine hippurate 1gm tablet PO SCH (07:37)
[2017-08-18] MEDS: lactobacillus rhamnosus 10,000 MMU CELLS/CAPSULE PO SCH ×2 (07:37→20:50)
[2017-08-18] MEDS: aspirin 325mg tablet PO SCH (07:37)
[2017-08-18] MEDS: venlafaxine XR 37.5mg cap (Q24H) PO SCH (07:37)
[2017-08-18] MEDS: ascorbic acid 500mg tablet PO SCH ×2 (07:37→20:49)
[2017-08-18] MEDS: pantoprazole 40mg Tablet.DR PO SCH (07:37)
[2017-08-18] MEDS: psyllium seed 3.4 gm packet PO SCH (07:37)
[2017-08-18] MEDS: docusate sod 100mg capsule PO SCH ×2 (07:37→20:49)
[2017-08-18] MEDS: metoprolol tartrate 50mg tablet PO SCH ×2 (07:37→20:50)
[2017-08-18] MEDS: ferrous sulfate 325mg tablet PO SCH ×3 (07:37→20:50)
[2017-08-18] MEDS: diltiazem CD 120mg capsule (once-daily) PO SCH (07:37)
[2017-08-18] MEDS: enoxaparin 30mg/0.3ml syringe SUBCUT SCH (07:38)
[2017-08-18] MEDS: polyethylene glycol 3350 17gm powd pack PO SCH (07:40)
[2017-08-18] MEDS ORDERED: vancomycin/NS 1 GM ADD-VANTAGE 250 ML X 1 DOSE IV ONE (07:40)
[2017-08-18] MEDS: cefepime inj 2 GM in dextrose 5%-water 50ml 50 ML IV SCH ×2 (07:44→20:49)
[2017-08-18 11:00] VITALS: BP 126/65
[2017-08-18 20:00] VITALS: BP 134/57
[2017-08-18] MEDS: atorvastatin 20mg tablet PO SCH (20:49)
[2017-08-19] VITALS: BP 150/59
[2017-08-19] MEDS: VANCOMYCIN LEVEL IV SCH (03:00)
[2017-08-19] MEDS: baclofen 10mg tablet PO PRN ×2 (03:26→09:26)
[2017-08-19] MEDS: HYDROcodone/acetaminophen 10/325mg tab PO SCH ×2 (03:26→09:26)
[2017-08-19] MEDS: normal saline 1000ml 1,000 ML IV SCH (03:27)
[2017-08-19 04:50] VITALS: BP 150/59
[2017-08-19 05:52] LABS: BASOPHILS % (AUTO) 0.6 % (0-1); EOSINOPHILS # (AUTO) 0.6 X10'3 (0-0.9); EOSINOPHILS % (AUTO) 8.5 % (0-6); HEMATOCRIT 25.5 % (42.0-52.0); HEMOGLOBIN 8.5 g/dl (14.0-17.9); LYMPHOCYTES # (AUTO) 0.7 X10'3 (1.1-4.8); LYMPHOCYTES % (AUTO) 9.6 % (21-51); MEAN CORPUSCULAR HGB CONC 33.3 % (33.0-36.5); MEAN CORPUSCULAR VOLUME 84.1 FL (78-98); MEAN PLATELET VOLUME 7.7 FL (7.4-10.4); MONOCYTES # (AUTO) 0.9 X10'3 (0-0.9); MONOCYTES % (AUTO) 11.9 % (2-12); NEUTROPHILS # (AUTO) 5.2 X10'3 (1.8-7.7); NEUTROPHILS % (AUTO) 69.4 % (42-75); PLATELET COUNT 181 X10'3 (140-440); RED BLOOD COUNT 3.04 X10'6 (4.70-6.10); RED CELL DISTRIBUTION WIDTH 19.3 % (11.5-14.5); WHITE BLOOD COUNT 7.5 X10'3 (4.5-11.0)
[2017-08-19 06:16] LABS: ALBUMIN 2.5 G/DL (3.4-5.0); ANION GAP 10 (8-16); BLOOD UREA NITROGEN 31 MG/DL (7-18); BUN/CREATININE RATIO 14.4 (5.4-32.0); CALCIUM 8.9 MG/DL (8.5-10.1); CHLORIDE 108 MMOL/L (99-107); CREATININE 2.16 MG/DL (0.60-1.10); GLUCOSE 124 MG/DL (70-104); POTASSIUM 3.8 MMOL/L (3.5-5.1); SODIUM 141 MMOL/L (135-145); TOTAL CARBON DIOXIDE 22.6 MMOL/L (24-32); VANCOMYCIN,RANDOM 24.1 UG/ML; eGFR 30 ML/MIN
[2017-08-19] MEDS: cefepime inj 2 GM in dextrose 5%-water 50ml 50 ML IV SCH (07:27)
[2017-08-19] MEDS: methenamine hippurate 1gm tablet PO SCH (07:28)
[2017-08-19] MEDS: ascorbic acid 500mg tablet PO SCH (07:28)
[2017-08-19] MEDS: docusate sod 100mg capsule PO SCH (07:28)
[2017-08-19] MEDS: ferrous sulfate 325mg tablet PO SCH ×2 (07:28→13:24)
[2017-08-19] MEDS: diltiazem CD 120mg capsule (once-daily) PO SCH (07:28)
[2017-08-19] MEDS: pantoprazole 40mg Tablet.DR PO SCH (07:28)
[2017-08-19] MEDS: venlafaxine XR 37.5mg cap (Q24H) PO SCH (07:28)
[2017-08-19] MEDS: multivitamins, therapeutics tablet PO SCH (07:28)
[2017-08-19] MEDS: metoprolol tartrate 50mg tablet PO SCH (07:28)
[2017-08-19] MEDS: lactobacillus rhamnosus 10,000 MMU CELLS/CAPSULE PO SCH (07:28)
[2017-08-19] MEDS: gabapentin 300mg capsule PO SCH (07:28)
[2017-08-19] MEDS: loratadine 10mg tablet PO SCH (07:28)
[2017-08-19] MEDS: amLODIPine 5mg tablet PO SCH (07:28)
[2017-08-19] MEDS: psyllium seed 3.4 gm packet PO SCH (07:29)
[2017-08-19 07:30] VITALS: BP 132/58
[2017-08-19] MEDS: enoxaparin 30mg/0.3ml syringe SUBCUT SCH (07:30)
[2017-08-19] MEDS: aspirin 325mg tablet PO SCH (07:33)
[2017-08-19] MEDS: polyethylene glycol 3350 17gm powd pack PO SCH (07:35)
[2017-08-19 11:30] VITALS: BP 116/50
[2017-08-19] MEDS ORDERED: METO50TA16 PO (11:54)
[2017-08-19] MEDS ORDERED: ASPI-1 PO (11:54)
[2017-08-19] MEDS ORDERED: HYDR2TAB7 PO (11:54)
== END 2017-08-19 14:48 | DRG 464 ==
LOC: ER 11:55 → EDSEX 16:42 → ED HOLD 16:42 → MED 3N 23:49 → PACU 08-12 16:17 → MED 3N 08-12 19:45
PROVIDERS: ADMIT Family Medicine; ATTEND Family Medicine
PROC: 0JBL0ZZ Excision of Right Upper Leg Subcutaneous Tissue and Fascia, Open Approach (ICD-10-PCS; principal; 2017-08-07 15:46)
PROC: 2W1NX6Z Compression of Right Upper Leg using Pressure Dressing (ICD-10-PCS; 2017-08-12)
PROC: 0Y9C00Z Drainage of Right Upper Leg with Drainage Device, Open Approach (ICD-10-PCS; 2017-08-15)
PROC: 2W1NX6Z Compression of Right Upper Leg using Pressure Dressing (ICD-10-PCS; 2017-08-15)
PROC: 0JQL0ZZ Repair Right Upper Leg Subcutaneous Tissue and Fascia, Open Approach (ICD-10-PCS; 2017-08-15)
DX: T87.43 Infection of amputation stump, right lower extremity (principal); N18.4 Chronic kidney disease, stage 4 (severe); E11.22 Type 2 diabetes mellitus with diabetic chronic kidney disease; E11.40 Type 2 diabetes mellitus with diabetic neuropathy, unspecified; G82.20 Paraplegia, unspecified; Z68.43 Body mass index [BMI] 50.0-59.9, adult; N39.0 Urinary tract infection, site not specified; T87.81 Dehiscence of amputation stump; B96.5 Pseudomonas (aeruginosa) (mallei) (pseudomallei) as the cause of diseases classified elsewhere; D63.8 Anemia in other chronic diseases classified elsewhere; Y83.5 Amputation of limb(s) as the cause of abnormal reaction of the patient, or of later complication, without mention of misadventure at the time of the procedure; E78.5 Hyperlipidemia, unspecified; I12.9 Hypertensive chronic kidney disease with stage 1 through stage 4 chronic kidney disease, or unspecified chronic kidney disease; Z16.23 Resistance to quinolones and fluoroquinolones; Z79.82 Long term (current) use of aspirin; Z79.899 Other long term (current) drug therapy; Z89.611 Acquired absence of right leg above knee; Z89.512 Acquired absence of left leg below knee; Z86.14 Personal history of Methicillin resistant Staphylococcus aureus infection; Z87.891 Personal history of nicotine dependence; Z22.322 Carrier or suspected carrier of Methicillin resistant Staphylococcus aureus
CPT/HCPCS: 36415; 71045; 73552; 80048; 80053; 80202; 81001; 82948; 85025; 85610; 85730; 87070; 87077; 87088; 87186; 93005; 99285; A4315; A6212; A6213; A6255; A6258; A6446; A7000; J0692; J1170; J1650; J2001; J2175; J2250; J2704; J3010; J3370; J7030; J7060; J7120

== ENCOUNTER 2017-10-14 14:57 | Inpatient (IN) | payer MEDICARE, OTHER, MEDICAID ==
[~2017-10-14] VITALS: Ht 144.8 cm; Wt 72.7 kg
[~2017-10-14 14:57] MED LIST changes: +ASPI-1 PO; -CEPH500C5 PO; +HYDR2TAB7 PO; +METO50TA16 PO; -METO50TA17 PO; +MULT-38 PO; +ONDA4TAB6 PO; +POLY17PO10 PO
[2017-10-14 17:09] LABS: BASOPHILS % (AUTO) 0.3 % (0-1); EOSINOPHILS # (AUTO) 0.6 X10'3 (0-0.9); EOSINOPHILS % (AUTO) 7.6 % (0-6); HEMATOCRIT 29.3 % (42.0-52.0); HEMOGLOBIN 9.9 g/dl (14.0-17.9); LYMPHOCYTES % (AUTO) 11.8 % (21-51); MEAN CORPUSCULAR HEMOGLOBIN 27.7 PG (27.0-31.0); MEAN CORPUSCULAR HGB CONC 33.6 % (33.0-36.5); MEAN CORPUSCULAR VOLUME 82.4 FL (78-98); MONOCYTES # (AUTO) 0.8 X10'3 (0-0.9); MONOCYTES % (AUTO) 8.8 % (2-12); NEUTROPHILS # (AUTO) 6.1 X10'3 (1.8-7.7); NEUTROPHILS % (AUTO) 71.5 % (42-75); PLATELET COUNT 203 X10'3 (140-440); RED BLOOD COUNT 3.56 X10'6 (4.70-6.10); RED CELL DISTRIBUTION WIDTH 16.3 % (11.5-14.5); WHITE BLOOD COUNT 8.5 X10'3 (4.5-11.0)
[2017-10-14 17:19] LABS: PARTIAL THROMBOPLASTIN TIME 35 SECONDS (22-32)
[2017-10-14 17:29] LABS: ALANINE AMINOTRANSFERASE 13 U/L (12-78); ALBUMIN 2.6 G/DL (3.4-5.0); ALBUMIN/GLOBULIN RATIO 0.5 (1.1-1.5); ALKALINE PHOSPHATASE 82 IU/L (46-116); ANION GAP 12 (8-16); ASPARTATE AMINO TRANSFERASE 13 U/L (10-37); BILIRUBIN,TOTAL 0.4 MG/DL (0.1-1.0); BLOOD UREA NITROGEN 47 MG/DL (7-18); BUN/CREATININE RATIO 18.7 (5.4-32.0); CALCIUM 8.9 MG/DL (8.5-10.1); CHLORIDE 103 MMOL/L (99-107); CREATININE 2.52 MG/DL (0.60-1.10); GLUCOSE 135 MG/DL (70-104); POTASSIUM 4.2 MMOL/L (3.5-5.1); SODIUM 141 MMOL/L (135-145); TOTAL CARBON DIOXIDE 26.4 MMOL/L (24-32); TOTAL PROTEIN 7.4 G/DL (6.4-8.2); eGFR 25 ML/MIN
[2017-10-14 17:30] LABS: MAGNESIUM 1.9 MG/DL (1.5-2.4)
[2017-10-14] MEDS ORDERED: HYDROcodone/acetaminophen 10/325mg tab PO ONE (19:20)
[2017-10-14] MEDS ORDERED: ondansetron 4mg rapidly disintigrating tab PO ONE (19:20)
[2017-10-14] MEDS ORDERED: HYDR-565 PO (19:25)
[2017-10-14] MEDS ORDERED: magnesium hydroxide 30ml (MOM) UD suspension PO PRN (19:40)
[2017-10-14] MEDS ORDERED: mag hydrox/Alum hydrox/simeth 30ml oral suspension PO PRN (19:40)
[2017-10-14] MEDS ORDERED: HYDROcodone/acetaminophen 5mg/325mg tablet PO PRN (19:40)
[2017-10-14] MEDS ORDERED: ondansetron/PF 4mg/2ml inj IV PRN (19:40)
[2017-10-14] MEDS ORDERED: acetaminophen 325mg tablet PO PRN (19:40)
[2017-10-14] MEDS ORDERED: CHOL400T14 PO (19:45)
[2017-10-14] MEDS ORDERED: NAPR220T67 PO (19:45)
[2017-10-14] MEDS ORDERED: BISA10SU60 RC (19:45)
[2017-10-14] MEDS ORDERED: NA P133E4 RC (19:45)
[2017-10-14] MEDS ORDERED: ZIN220C PO (19:45)
[2017-10-14] MEDS ORDERED: MAGN400O6 PO (19:45)
[2017-10-14] MEDS: normal saline 1000ml 1,000 ML IV SCH (19:58)
[2017-10-14] MEDS: heparin, porcine 5000 units/ml vial SQ SCH (19:58)
[2017-10-14] MEDS ORDERED: SACCHAROMYCES BOULARDII PO SCH (20:00)
[2017-10-14] MEDS ORDERED: meropenem inj 1 GM in normal saline 100ml IV soln 100 ML IV SCH (20:00)
[2017-10-14] MEDS: gabapentin 300mg capsule PO SCH (20:18)
[2017-10-14] MEDS: amLODIPine 2.5mg tablet PO SCH (20:18)
[2017-10-14] MEDS: meropenem inj 1 GM in normal saline 100ml IV soln 100 ML IV SCH (20:19)
[2017-10-14] MEDS: baclofen 10mg tablet PO PRN (20:19)
[2017-10-14] MEDS: ferrous sulfate 325mg tablet PO SCH (20:22)
[2017-10-14] MEDS: atorvastatin 20mg tablet PO SCH (20:22)
[2017-10-14] MEDS: psyllium seed 3.4 gm packet PO SCH (21:00)
[2017-10-15] VITALS (11 sets, daily range): BP systolic 119–147; BP diastolic 57–69
[2017-10-15] MEDS: HYDROcodone/acetaminophen 10/325mg tab PO PRN ×4 (00:33→19:50)
[2017-10-15] MEDS: baclofen 10mg tablet PO PRN ×2 (04:26→19:59)
[2017-10-15 05:51] LABS: BASOPHILS % (AUTO) 0.2 % (0-1); EOSINOPHILS # (AUTO) 0.6 X10'3 (0-0.9); EOSINOPHILS % (AUTO) 6.3 % (0-6); HEMATOCRIT 28.8 % (42.0-52.0); HEMOGLOBIN 9.7 g/dl (14.0-17.9); LYMPHOCYTES % (AUTO) 10.6 % (21-51); MEAN CORPUSCULAR HEMOGLOBIN 27.5 PG (27.0-31.0); MEAN CORPUSCULAR HGB CONC 33.7 % (33.0-36.5); MEAN CORPUSCULAR VOLUME 81.6 FL (78-98); MEAN PLATELET VOLUME 7.8 FL (7.4-10.4); MONOCYTES # (AUTO) 0.7 X10'3 (0-0.9); MONOCYTES % (AUTO) 7.7 % (2-12); NEUTROPHILS # (AUTO) 6.9 X10'3 (1.8-7.7); NEUTROPHILS % (AUTO) 75.2 % (42-75); PLATELET COUNT 194 X10'3 (140-440); RED BLOOD COUNT 3.53 X10'6 (4.70-6.10); RED CELL DISTRIBUTION WIDTH 16.5 % (11.5-14.5); WHITE BLOOD COUNT 9.1 X10'3 (4.5-11.0)
[2017-10-15 05:56] LABS: ALANINE AMINOTRANSFERASE 14 U/L (12-78); ALBUMIN 2.6 G/DL (3.4-5.0); ALBUMIN/GLOBULIN RATIO 0.6 (1.1-1.5); ALKALINE PHOSPHATASE 77 IU/L (46-116); ANION GAP 10 (8-16); ASPARTATE AMINO TRANSFERASE 12 U/L (10-37); BILIRUBIN,TOTAL 0.4 MG/DL (0.1-1.0); BLOOD UREA NITROGEN 44 MG/DL (7-18); CALCIUM 8.7 MG/DL (8.5-10.1); CHLORIDE 104 MMOL/L (99-107); CREATININE 2.44 MG/DL (0.60-1.10); GLUCOSE 136 MG/DL (70-104); POTASSIUM 4.4 MMOL/L (3.5-5.1); SODIUM 141 MMOL/L (135-145); TOTAL CARBON DIOXIDE 26.6 MMOL/L (24-32); TOTAL PROTEIN 7.3 G/DL (6.4-8.2); eGFR 26 ML/MIN
[2017-10-15 06:33] LABS: HEMOGLOBIN A1C 7.5 % (4.5-6.2)
[2017-10-15] MEDS: heparin, porcine 5000 units/ml vial SQ SCH ×2 (08:00→19:50)
[2017-10-15] MEDS ORDERED: fluconazole 100mg tablet PO SCH (08:00)
[2017-10-15] MEDS: meropenem inj 1 GM in normal saline 100ml IV soln 100 ML IV SCH ×2 (08:14→19:50)
[2017-10-15] MEDS: loratadine 10mg tablet PO SCH (08:15)
[2017-10-15] MEDS: ferrous sulfate 325mg tablet PO SCH ×3 (08:16→21:11)
[2017-10-15] MEDS: amLODIPine 2.5mg tablet PO SCH ×2 (08:16→19:49)
[2017-10-15] MEDS: gabapentin 300mg capsule PO SCH ×2 (08:17→19:49)
[2017-10-15] MEDS: multivitamins, therapeutics tablet PO SCH (08:17)
[2017-10-15] MEDS: pantoprazole 40mg Tablet.DR PO SCH (08:17)
[2017-10-15] MEDS: diltiazem CD 120mg capsule (once-daily) PO SCH (08:18)
[2017-10-15] MEDS: venlafaxine XR 37.5mg cap (Q24H) PO SCH (08:18)
[2017-10-15] MEDS: fluconazole 100mg tablet PO SCH (08:18)
[2017-10-15] MEDS ORDERED: ceFAZolin 1GM/D5W- ADD-VANTAGE 50 ML IV ONE (13:00)
[2017-10-15] MEDS ORDERED: sevoflurane 250ml liquid IH ONE (13:03)
[2017-10-15] MEDS ORDERED: ringers solution, lacted 1,000 ML IV SCH (13:04)
[2017-10-15] MEDS ORDERED: hydrALAZINE 20mg/ml inj. IV PRN (13:05)
[2017-10-15] MEDS ORDERED: ondansetron/PF 4mg/2ml inj IV PRN (13:05)
[2017-10-15] MEDS ORDERED: fentaNYL/PF 50MCG/1 ML 2ML syringe IV PRN ×2 (13:05)
[2017-10-15] MEDS ORDERED: morphine 4 MG/ML inj SYRINge IV PRN ×2 (13:05)
[2017-10-15] MEDS ORDERED: enalaprilat dihydrate 2.5mg/2ml vial IV PRN (13:05)
[2017-10-15] MEDS ORDERED: morphine 10mg/ml inj. ONE (13:10)
[2017-10-15] MEDS ORDERED: etomidate 2mg/ml inj. ONE (13:10)
[2017-10-15] MEDS ORDERED: albumin (Human) 5% 250ml 250 ML IV ONE (13:19)
[2017-10-15] MEDS: normal saline 1000ml 1,000 ML IV SCH (15:39)
[2017-10-15] MEDS ORDERED: cefazolin/dext.iso 2gm/50ml 50 ML IV SCH (16:00)
[2017-10-15] MEDS ORDERED: Cefazolin 2GM/100ML NS IVPB 100 ML IV SCH (16:00)
[2017-10-15] MEDS: ceFAZolin 2gm in dextrose, iso 100 ML IV SCH ×2 (17:27→23:53)
[2017-10-15] MEDS: lactobacillus rhamnosus 10,000 MMU CELLS/CAPSULE PO SCH (19:49)
[2017-10-15] MEDS: atorvastatin 20mg tablet PO SCH (21:11)
[2017-10-15] MEDS: psyllium seed 3.4 gm packet PO SCH (21:11)
[2017-10-16 02:00] VITALS: BP 143/67
[2017-10-16] MEDS: HYDROcodone/acetaminophen 10/325mg tab PO PRN ×2 (03:47→19:44)
[2017-10-16] MEDS: baclofen 10mg tablet PO PRN (03:47)
[2017-10-16 06:00] VITALS: BP 133/63
[2017-10-16 06:03] LABS: BASOPHILS % (AUTO) 0.2 % (0-1); EOSINOPHILS # (AUTO) 0.3 X10'3 (0-0.9); EOSINOPHILS % (AUTO) 2.6 % (0-6); HEMATOCRIT 29.6 % (42.0-52.0); HEMOGLOBIN 9.9 g/dl (14.0-17.9); LYMPHOCYTES # (AUTO) 0.4 X10'3 (1.1-4.8); LYMPHOCYTES % (AUTO) 3.7 % (21-51); MEAN CORPUSCULAR HEMOGLOBIN 27.3 PG (27.0-31.0); MEAN CORPUSCULAR HGB CONC 33.3 % (33.0-36.5); MEAN PLATELET VOLUME 7.4 FL (7.4-10.4); MONOCYTES # (AUTO) 0.9 X10'3 (0-0.9); MONOCYTES % (AUTO) 7.2 % (2-12); NEUTROPHILS # (AUTO) 10.2 X10'3 (1.8-7.7); NEUTROPHILS % (AUTO) 86.3 % (42-75); PLATELET COUNT 188 X10'3 (140-440); RED BLOOD COUNT 3.61 X10'6 (4.70-6.10); RED CELL DISTRIBUTION WIDTH 15.9 % (11.5-14.5); WHITE BLOOD COUNT 11.8 X10'3 (4.5-11.0)
[2017-10-16 06:31] LABS: ALANINE AMINOTRANSFERASE 13 U/L (12-78); ALBUMIN 2.7 G/DL (3.4-5.0); ALBUMIN/GLOBULIN RATIO 0.6 (1.1-1.5); ALKALINE PHOSPHATASE 74 IU/L (46-116); ANION GAP 10 (8-16); ASPARTATE AMINO TRANSFERASE 14 U/L (10-37); BILIRUBIN,TOTAL 0.3 MG/DL (0.1-1.0); BLOOD UREA NITROGEN 37 MG/DL (7-18); BUN/CREATININE RATIO 14.8 (5.4-32.0); CALCIUM 8.9 MG/DL (8.5-10.1); CHLORIDE 106 MMOL/L (99-107); GLUCOSE 121 MG/DL (70-104); POTASSIUM 4.1 MMOL/L (3.5-5.1); SODIUM 142 MMOL/L (135-145); TOTAL CARBON DIOXIDE 25.7 MMOL/L (24-32); TOTAL PROTEIN 7.2 G/DL (6.4-8.2); eGFR 25 ML/MIN
[2017-10-16] MEDS: ferrous sulfate 325mg tablet PO SCH ×3 (07:24→19:40)
[2017-10-16] MEDS: gabapentin 300mg capsule PO SCH ×2 (07:24→19:41)
[2017-10-16] MEDS: venlafaxine XR 37.5mg cap (Q24H) PO SCH (07:24)
[2017-10-16] MEDS: multivitamins, therapeutics tablet PO SCH (07:25)
[2017-10-16] MEDS: lactobacillus rhamnosus 10,000 MMU CELLS/CAPSULE PO SCH ×2 (07:25→19:41)
[2017-10-16] MEDS: loratadine 10mg tablet PO SCH (07:25)
[2017-10-16] MEDS: pantoprazole 40mg Tablet.DR PO SCH (07:25)
[2017-10-16] MEDS: amLODIPine 2.5mg tablet PO SCH (07:27)
[2017-10-16] MEDS: diltiazem CD 120mg capsule (once-daily) PO SCH (07:27)
[2017-10-16] MEDS: meropenem inj 1 GM in normal saline 100ml IV soln 100 ML IV SCH (07:28)
[2017-10-16] MEDS: fluconazole 100mg tablet PO SCH (07:28)
[2017-10-16] MEDS: heparin, porcine 5000 units/ml vial SQ SCH ×2 (07:29→19:42)
[2017-10-16 10:00] VITALS: BP 134/60
[2017-10-16] MEDS: ceFAZolin 2gm in dextrose, iso 100 ML IV SCH (10:10)
[2017-10-16] MEDS: normal saline 1000ml 1,000 ML IV SCH (12:08)
[2017-10-16 14:00] VITALS: BP 137/68
[2017-10-16 18:00] VITALS: BP 139/71
[2017-10-16] MEDS: atorvastatin 20mg tablet PO SCH (19:41)
[2017-10-16] MEDS: amLODIPine 5mg tablet PO SCH (19:42)
[2017-10-16] MEDS: psyllium seed 3.4 gm packet PO SCH (19:43)
[2017-10-16 22:00] VITALS: BP 136/59
[2017-10-17 06:00] VITALS: BP_SYST 139; BP_SYST 154; BP_DIAS 65; BP_DIAS 71
[2017-10-17 07:11] LABS: BASOPHILS % (AUTO) 0.1 % (0-1); EOSINOPHILS # (AUTO) 0.2 X10'3 (0-0.9); EOSINOPHILS % (AUTO) 2.2 % (0-6); HEMATOCRIT 28.3 % (42.0-52.0); HEMOGLOBIN 9.7 g/dl (14.0-17.9); LYMPHOCYTES # (AUTO) 0.6 X10'3 (1.1-4.8); LYMPHOCYTES % (AUTO) 5.6 % (21-51); MEAN CORPUSCULAR HEMOGLOBIN 28.4 PG (27.0-31.0); MEAN CORPUSCULAR HGB CONC 34.4 % (33.0-36.5); MEAN CORPUSCULAR VOLUME 82.4 FL (78-98); MEAN PLATELET VOLUME 7.7 FL (7.4-10.4); MONOCYTES # (AUTO) 1.2 X10'3 (0-0.9); MONOCYTES % (AUTO) 10.6 % (2-12); NEUTROPHILS # (AUTO) 9.3 X10'3 (1.8-7.7); NEUTROPHILS % (AUTO) 81.5 % (42-75); PLATELET COUNT 176 X10'3 (140-440); RED BLOOD COUNT 3.43 X10'6 (4.70-6.10); RED CELL DISTRIBUTION WIDTH 15.3 % (11.5-14.5); WHITE BLOOD COUNT 11.3 X10'3 (4.5-11.0)
[2017-10-17] MEDS: normal saline 1000ml 1,000 ML IV SCH (07:39)
[2017-10-17 07:45] LABS: ALANINE AMINOTRANSFERASE 6 U/L (12-78); ALBUMIN 2.5 G/DL (3.4-5.0); ALBUMIN/GLOBULIN RATIO 0.5 (1.1-1.5); ALKALINE PHOSPHATASE 72 IU/L (46-116); ANION GAP 13 (8-16); ASPARTATE AMINO TRANSFERASE 15 U/L (10-37); BILIRUBIN,TOTAL 0.3 MG/DL (0.1-1.0); BLOOD UREA NITROGEN 39 MG/DL (7-18); CALCIUM 8.9 MG/DL (8.5-10.1); CHLORIDE 103 MMOL/L (99-107); CREATININE 3.01 MG/DL (0.60-1.10); GLUCOSE 165 MG/DL (70-104); POTASSIUM 3.4 MMOL/L (3.5-5.1); SODIUM 139 MMOL/L (135-145); TOTAL PROTEIN 7.3 G/DL (6.4-8.2); eGFR 20 ML/MIN
[2017-10-17] MEDS: cefepime 1GM/NS ADD-VANTAGE 100 ML IV SCH (08:05)
[2017-10-17] MEDS: gabapentin 300mg capsule PO SCH (08:05)
[2017-10-17] MEDS: venlafaxine XR 37.5mg cap (Q24H) PO SCH (08:05)
[2017-10-17] MEDS: amLODIPine 5mg tablet PO SCH ×2 (08:06→20:28)
[2017-10-17] MEDS: ferrous sulfate 325mg tablet PO SCH ×3 (08:06→20:28)
[2017-10-17] MEDS: multivitamins, therapeutics tablet PO SCH (08:06)
[2017-10-17] MEDS: diltiazem CD 120mg capsule (once-daily) PO SCH (08:06)
[2017-10-17] MEDS: lactobacillus rhamnosus 10,000 MMU CELLS/CAPSULE PO SCH ×2 (08:06→20:28)
[2017-10-17] MEDS: HYDROcodone/acetaminophen 10/325mg tab PO PRN ×2 (08:07→14:38)
[2017-10-17] MEDS: heparin, porcine 5000 units/ml vial SQ SCH ×2 (08:07→20:29)
[2017-10-17] MEDS: baclofen 10mg tablet PO PRN ×3 (08:15→20:28)
[2017-10-17] MEDS: pantoprazole 40mg Tablet.DR PO SCH (08:17)
[2017-10-17 10:00] VITALS: BP 146/72
[2017-10-17] MEDS ORDERED: potassium Cl 20 mEq SR tablet PO ONE (17:25)
[2017-10-17 18:00] VITALS: BP 147/68
[2017-10-17] MEDS: atorvastatin 20mg tablet PO SCH (20:28)
[2017-10-17] MEDS: psyllium seed 3.4 gm packet PO SCH (20:33)
[2017-10-17 22:00] VITALS: BP 158/70
[2017-10-18] MEDS: HYDROcodone/acetaminophen 10/325mg tab PO PRN ×3 (00:17→15:42)
[2017-10-18] MEDS: baclofen 10mg tablet PO PRN ×4 (03:20→15:42)
[2017-10-18] MEDS: normal saline 1000ml 1,000 ML IV SCH ×2 (04:21→23:48)
[2017-10-18 06:00] VITALS: BP 134/59
[2017-10-18 06:24] LABS: BASOPHILS % (AUTO) 0.1 % (0-1); EOSINOPHILS # (AUTO) 0.5 X10'3 (0-0.9); EOSINOPHILS % (AUTO) 5.1 % (0-6); HEMATOCRIT 26.3 % (42.0-52.0); HEMOGLOBIN 8.9 g/dl (14.0-17.9); LYMPHOCYTES # (AUTO) 0.7 X10'3 (1.1-4.8); LYMPHOCYTES % (AUTO) 7.1 % (21-51); MEAN CORPUSCULAR HEMOGLOBIN 27.5 PG (27.0-31.0); MEAN CORPUSCULAR HGB CONC 33.8 % (33.0-36.5); MEAN CORPUSCULAR VOLUME 81.5 FL (78-98); MEAN PLATELET VOLUME 7.1 FL (7.4-10.4); MONOCYTES # (AUTO) 1.1 X10'3 (0-0.9); MONOCYTES % (AUTO) 11.9 % (2-12); NEUTROPHILS % (AUTO) 75.8 % (42-75); PLATELET COUNT 192 X10'3 (140-440); RED BLOOD COUNT 3.22 X10'6 (4.70-6.10); RED CELL DISTRIBUTION WIDTH 15.7 % (11.5-14.5); WHITE BLOOD COUNT 9.2 X10'3 (4.5-11.0)
[2017-10-18 06:52] LABS: ALBUMIN 2.3 G/DL (3.4-5.0); ALBUMIN/GLOBULIN RATIO 0.5 (1.1-1.5); ALKALINE PHOSPHATASE 64 IU/L (46-116); ANION GAP 12 (8-16); ASPARTATE AMINO TRANSFERASE 16 U/L (10-37); BILIRUBIN,TOTAL 0.3 MG/DL (0.1-1.0); BLOOD UREA NITROGEN 42 MG/DL (7-18); BUN/CREATININE RATIO 14.9 (5.4-32.0); CHLORIDE 104 MMOL/L (99-107); CREATININE 2.81 MG/DL (0.60-1.10); GLUCOSE 142 MG/DL (70-104); POTASSIUM 3.5 MMOL/L (3.5-5.1); SODIUM 139 MMOL/L (135-145); TOTAL CARBON DIOXIDE 23.3 MMOL/L (24-32); TOTAL PROTEIN 7.2 G/DL (6.4-8.2); eGFR 22 ML/MIN
[2017-10-18 07:02] LABS: ALANINE AMINOTRANSFERASE < 6 U/L (12-78)
[2017-10-18] MEDS: lactobacillus rhamnosus 10,000 MMU CELLS/CAPSULE PO SCH ×2 (08:47→20:58)
[2017-10-18] MEDS: amLODIPine 5mg tablet PO SCH ×2 (08:47→20:58)
[2017-10-18] MEDS: gabapentin 100mg capsule PO SCH (08:47)
[2017-10-18] MEDS: venlafaxine XR 37.5mg cap (Q24H) PO SCH (08:47)
[2017-10-18] MEDS: ferrous sulfate 325mg tablet PO SCH ×3 (08:47→20:57)
[2017-10-18] MEDS: diltiazem CD 120mg capsule (once-daily) PO SCH (08:48)
[2017-10-18] MEDS: multivitamins, therapeutics tablet PO SCH (08:48)
[2017-10-18] MEDS: heparin, porcine 5000 units/ml vial SQ SCH ×2 (08:49→20:57)
[2017-10-18] MEDS: pantoprazole 40mg Tablet.DR PO SCH (08:54)
[2017-10-18] MEDS: cefepime 1GM/NS ADD-VANTAGE 100 ML IV SCH (08:55)
[2017-10-18 10:00] VITALS: BP 142/65
[2017-10-18 18:00] VITALS: BP 132/53
[2017-10-18] MEDS: atorvastatin 20mg tablet PO SCH (20:58)
[2017-10-18] MEDS: psyllium seed 3.4 gm packet PO SCH (20:58)
[2017-10-18 22:00] VITALS: BP 150/70
[2017-10-19 05:00] VITALS: BP 156/65
[2017-10-19] MEDS: baclofen 10mg tablet PO PRN ×3 (05:43→19:41)
[2017-10-19] MEDS: HYDROcodone/acetaminophen 10/325mg tab PO PRN ×4 (05:43→23:33)
[2017-10-19 06:42] LABS: BASOPHILS % (AUTO) 0.1 % (0-1); EOSINOPHILS # (AUTO) 0.5 X10'3 (0-0.9); EOSINOPHILS % (AUTO) 7.4 % (0-6); HEMATOCRIT 27.2 % (42.0-52.0); HEMOGLOBIN 9.1 g/dl (14.0-17.9); LYMPHOCYTES # (AUTO) 0.7 X10'3 (1.1-4.8); LYMPHOCYTES % (AUTO) 9.4 % (21-51); MEAN CORPUSCULAR HEMOGLOBIN 27.3 PG (27.0-31.0); MEAN CORPUSCULAR HGB CONC 33.2 % (33.0-36.5); MEAN CORPUSCULAR VOLUME 82.2 FL (78-98); MEAN PLATELET VOLUME 7.5 FL (7.4-10.4); MONOCYTES % (AUTO) 13.8 % (2-12); NEUTROPHILS % (AUTO) 69.3 % (42-75); PLATELET COUNT 197 X10'3 (140-440); RED BLOOD COUNT 3.31 X10'6 (4.70-6.10); RED CELL DISTRIBUTION WIDTH 15.6 % (11.5-14.5); WHITE BLOOD COUNT 7.2 X10'3 (4.5-11.0)
[2017-10-19 07:02] LABS: ALANINE AMINOTRANSFERASE 11 U/L (12-78); ALBUMIN 2.3 G/DL (3.4-5.0); ALBUMIN/GLOBULIN RATIO 0.5 (1.1-1.5); ALKALINE PHOSPHATASE 62 IU/L (46-116); ANION GAP 15 (8-16); ASPARTATE AMINO TRANSFERASE 14 U/L (10-37); BILIRUBIN,TOTAL 0.3 MG/DL (0.1-1.0); BLOOD UREA NITROGEN 41 MG/DL (7-18); BUN/CREATININE RATIO 16.3 (5.4-32.0); CALCIUM 8.9 MG/DL (8.5-10.1); CHLORIDE 107 MMOL/L (99-107); CREATININE 2.51 MG/DL (0.60-1.10); GLUCOSE 134 MG/DL (70-104); POTASSIUM 3.1 MMOL/L (3.5-5.1); SODIUM 143 MMOL/L (135-145); TOTAL CARBON DIOXIDE 21.4 MMOL/L (24-32); TOTAL PROTEIN 7.3 G/DL (6.4-8.2); eGFR 25 ML/MIN
[2017-10-19] MEDS: lactobacillus rhamnosus 10,000 MMU CELLS/CAPSULE PO SCH ×2 (07:35→19:41)
[2017-10-19] MEDS: gabapentin 100mg capsule PO SCH (07:35)
[2017-10-19] MEDS: diltiazem CD 120mg capsule (once-daily) PO SCH (07:35)
[2017-10-19] MEDS: pantoprazole 40mg Tablet.DR PO SCH (07:35)
[2017-10-19] MEDS: venlafaxine XR 37.5mg cap (Q24H) PO SCH (07:35)
[2017-10-19] MEDS: amLODIPine 5mg tablet PO SCH ×2 (07:36→19:41)
[2017-10-19] MEDS: ferrous sulfate 325mg tablet PO SCH ×3 (07:36→21:48)
[2017-10-19] MEDS: multivitamins, therapeutics tablet PO SCH (07:36)
[2017-10-19] MEDS: cefepime 1GM/NS ADD-VANTAGE 100 ML IV SCH (07:36)
[2017-10-19] MEDS: heparin, porcine 5000 units/ml vial SQ SCH ×2 (07:36→19:42)
[2017-10-19 10:00] VITALS: BP 131/82
[2017-10-19] MEDS ORDERED: normal saline 500ml IV soln 500 ML IV ONE (14:40)
[2017-10-19] MEDS ORDERED: potassium Cl 20 mEq SR tablet PO PRN (14:40)
[2017-10-19] MEDS ORDERED: potassium Cl 40MEQ/NS 500ml 500 ML IV PRN ×2 (14:40)
[2017-10-19] MEDS: K and/or MAG REPLACEMENT MC SCH (14:48)
[2017-10-19] MEDS: sodium chloride 0.45% 1,000 ML IV SCH (16:14)
[2017-10-19] MEDS: potassium Cl 20 mEq SR tablet PO PRN ×2 (17:00→21:47)
[2017-10-19 17:51] LABS: UA COLLECTION TYPE NON-SPECIFIED
[2017-10-19 17:52] LABS: CLARITY,URINE CLOUDY (Clear); COLOR,URINE STRAW (Yellow); GLUCOSE, URINE NEGATIVE (Neg); KETONES,URINE NEGATIVE (Neg); LEUKOCYTE ESTERASE ,URINE LARGE (Neg); NITRITES, URINE NEGATIVE (Neg); OCCULT BLOOD,URINE SMALL (Neg); PROTEIN,URINE 100 mg/dl (Neg); UROBILINOGEN,URINE 0.2 E.U/dL (0.2-1.0)
[2017-10-19 18:02] LABS: WBC,URINE TNTC /HPF (0-4)
[2017-10-19 18:03] LABS: BACTERIA,URINE FEW /HPF (Neg); MUCUS STRANDS NONE SEEN /LPF (Neg); SQUAMOUS EPITHELIAL CELL,UR NONE SEEN /LPF (FEW)
[2017-10-19 18:30] VITALS: BP 141/66
[2017-10-19] MEDS: normal saline 1000ml 1,000 ML IV SCH (19:39)
[2017-10-19] MEDS: atorvastatin 20mg tablet PO SCH (19:41)
[2017-10-19] MEDS: psyllium seed 3.4 gm packet PO SCH (21:00)
[2017-10-19 22:00] VITALS: BP 151/72
[2017-10-20] MEDS: sodium chloride 0.45% 1,000 ML IV SCH ×2 (00:37→01:48)
[2017-10-20] MEDS: baclofen 10mg tablet PO PRN ×3 (01:44→13:58)
[2017-10-20] MEDS: HYDROcodone/acetaminophen 10/325mg tab PO PRN ×3 (03:42→13:59)
[2017-10-20 06:00] VITALS: BP 148/67
[2017-10-20] MEDS: diltiazem CD 120mg capsule (once-daily) PO SCH (07:47)
[2017-10-20] MEDS: lactobacillus rhamnosus 10,000 MMU CELLS/CAPSULE PO SCH (07:47)
[2017-10-20] MEDS: heparin, porcine 5000 units/ml vial SQ SCH (07:47)
[2017-10-20] MEDS: gabapentin 100mg capsule PO SCH (07:47)
[2017-10-20] MEDS: amLODIPine 5mg tablet PO SCH (07:47)
[2017-10-20] MEDS: ferrous sulfate 325mg tablet PO SCH ×2 (07:47→13:58)
[2017-10-20] MEDS: pantoprazole 40mg Tablet.DR PO SCH (07:47)
[2017-10-20] MEDS: multivitamins, therapeutics tablet PO SCH (07:47)
[2017-10-20] MEDS: cefepime 1GM/NS ADD-VANTAGE 100 ML IV SCH (07:47)
[2017-10-20] MEDS: venlafaxine XR 37.5mg cap (Q24H) PO SCH (08:00)
[2017-10-20] MEDS: K and/or MAG REPLACEMENT MC SCH (08:00)
[2017-10-20 10:00] VITALS: BP 128/54
[2017-10-20] MEDS: potassium Cl 20 mEq SR tablet PO PRN (11:28)
== END 2017-10-20 16:02 | DRG 475 ==
LOC: ER 14:57 → ED HOLD 19:39 → ORTHO 4S 22:20 → CMPBEDREQ 10-15 00:25
PROVIDERS: ADMIT Internal Medicine; ATTEND Family Medicine
PROC: 0Y6D0Z1 Detachment at Left Upper Leg, High, Open Approach (ICD-10-PCS; principal; 2017-10-15 13:03)
DX: T87.54 Necrosis of amputation stump, left lower extremity (principal); G82.20 Paraplegia, unspecified; E44.0 Moderate protein-calorie malnutrition; E11.52 Type 2 diabetes mellitus with diabetic peripheral angiopathy with gangrene; N18.4 Chronic kidney disease, stage 4 (severe); T87.81 Dehiscence of amputation stump; D64.9 Anemia, unspecified; E11.22 Type 2 diabetes mellitus with diabetic chronic kidney disease; B96.4 Proteus (mirabilis) (morganii) as the cause of diseases classified elsewhere; B96.89 Other specified bacterial agents as the cause of diseases classified elsewhere; E78.00 Pure hypercholesterolemia, unspecified; E78.5 Hyperlipidemia, unspecified; I12.9 Hypertensive chronic kidney disease with stage 1 through stage 4 chronic kidney disease, or unspecified chronic kidney disease; F32.9 Major depressive disorder, single episode, unspecified; K21.9 Gastro-esophageal reflux disease without esophagitis; Y83.5 Amputation of limb(s) as the cause of abnormal reaction of the patient, or of later complication, without mention of misadventure at the time of the procedure; F17.220 Nicotine dependence, chewing tobacco, uncomplicated; Z89.511 Acquired absence of right leg below knee; Z89.512 Acquired absence of left leg below knee; Z79.899 Other long term (current) drug therapy; Z86.14 Personal history of Methicillin resistant Staphylococcus aureus infection; Z68.34 Body mass index [BMI] 34.0-34.9, adult; Y92.89 Other specified places as the place of occurrence of the external cause
CPT/HCPCS: 36415; 71045; 80053; 81001; 82948; 83036; 83735; 83880; 84132; 85025; 85610; 85730; 87070; 87077; 87186; 88305; 93005; 99285; A4620; A4649; A6212; A6213; A6222; A6223; A6257; A6449; A7000; J0690; J0692; J1644; J2185; J2270; J3370; J3490; J7030; J7120; P9045

== ENCOUNTER 2017-11-10 07:50 | Emergency (ER) | payer MEDICARE, OTHER, MEDICAID ==
[~2017-11-10] VITALS: Ht 132.1 cm; Wt 86.0 kg
[~2017-11-10 07:50] MED LIST changes: -ACET-2119 PO; -ASPI-1 PO; +BISA10SU60 RC; +CHOL400T14 PO; -DOCU-28 PO; -HYDR2TAB7 PO; +MAGN400O6 PO; -METO50TA16 PO; +NA P133E4 RC; -POLY17PO10 PO; +ZIN220C PO
[2017-11-10 08:30] LABS: CLARITY,URINE TURBID (Clear); COLOR,URINE STRAW (Yellow); GLUCOSE, URINE NEGATIVE (Neg); KETONES,URINE NEGATIVE (Neg); LEUKOCYTE ESTERASE ,URINE LARGE (Neg); NITRITES, URINE POSITIVE (Neg); OCCULT BLOOD,URINE LARGE (Neg); PROTEIN,URINE 100 mg/dl (Neg); UROBILINOGEN,URINE 0.2 E.U/dL (0.2-1.0)
[2017-11-10 08:38] LABS: UA COLLECTION TYPE FOLEY CATH
[2017-11-10 08:48] LABS: WBC,URINE TNTC /HPF (0-4)
[2017-11-10 08:49] LABS: BACTERIA,URINE 4+ /HPF (Neg); MUCUS STRANDS NONE SEEN /LPF (Neg); RBC,URINE 0-2 /HPF (0-2); SQUAMOUS EPITHELIAL CELL,UR NONE SEEN /LPF (FEW); TRANSITIONAL EPI CELLS,URINE FEW /HPF
[2017-11-10 09:15] LABS: BASOPHILS % (AUTO) 0.4 % (0-1); EOSINOPHILS # (AUTO) 0.4 X10'3 (0-0.9); EOSINOPHILS % (AUTO) 6.3 % (0-6); HEMATOCRIT 30.4 % (42.0-52.0); LYMPHOCYTES # (AUTO) 1.1 X10'3 (1.1-4.8); LYMPHOCYTES % (AUTO) 18.1 % (21-51); MEAN CORPUSCULAR HEMOGLOBIN 27.3 PG (27.0-31.0); MEAN CORPUSCULAR VOLUME 82.8 FL (78-98); MEAN PLATELET VOLUME 7.3 FL (7.4-10.4); MONOCYTES # (AUTO) 0.7 X10'3 (0-0.9); NEUTROPHILS # (AUTO) 4.1 X10'3 (1.8-7.7); NEUTROPHILS % (AUTO) 64.2 % (42-75); PLATELET COUNT 196 X10'3 (140-440); RED BLOOD COUNT 3.67 X10'6 (4.70-6.10); RED CELL DISTRIBUTION WIDTH 16.5 % (11.5-14.5); WHITE BLOOD COUNT 6.3 X10'3 (4.5-11.0)
[2017-11-10 09:28] LABS: ALANINE AMINOTRANSFERASE 14 U/L (12-78); ALBUMIN 2.9 G/DL (3.4-5.0); ALBUMIN/GLOBULIN RATIO 0.6 (1.1-1.5); ALKALINE PHOSPHATASE 81 IU/L (46-116); ANION GAP 9 (8-16); ASPARTATE AMINO TRANSFERASE 14 U/L (10-37); BILIRUBIN,TOTAL 0.4 MG/DL (0.1-1.0); BLOOD UREA NITROGEN 42 MG/DL (7-18); BUN/CREATININE RATIO 12.7 (5.4-32.0); CALCIUM 8.8 MG/DL (8.5-10.1); CHLORIDE 104 MMOL/L (99-107); CREATININE 3.32 MG/DL (0.60-1.10); GLUCOSE 110 MG/DL (70-104); SODIUM 142 MMOL/L (135-145); TOTAL CARBON DIOXIDE 29.2 MMOL/L (24-32); TOTAL PROTEIN 7.7 G/DL (6.4-8.2); eGFR 18 ML/MIN
[2017-11-10] MEDS ORDERED: CefTRIAXone/D5W-Rocephin 1gm 50 ML IV ONE (10:00)
[2017-11-10 10:08] LABS: CLARITY,URINE TURBID (Clear); COLOR,URINE STRAW (Yellow); GLUCOSE, URINE NEGATIVE (Neg); KETONES,URINE NEGATIVE (Neg); LEUKOCYTE ESTERASE ,URINE LARGE (Neg); NITRITES, URINE NEGATIVE (Neg); OCCULT BLOOD,URINE MODERATE (Neg); PROTEIN,URINE 100 mg/dl (Neg); UROBILINOGEN,URINE 0.2 E.U/dL (0.2-1.0)
[2017-11-10 10:15] LABS: UA COLLECTION TYPE FOLEY CATH
[2017-11-10 10:16] LABS: MUCUS STRANDS NONE SEEN /LPF (Neg); SQUAMOUS EPITHELIAL CELL,UR FEW /LPF (FEW); WBC,URINE TNTC /HPF (0-4)
[2017-11-10 10:17] LABS: BACTERIA,URINE 4+ /HPF (Neg); TRANSITIONAL EPI CELLS,URINE FEW /HPF
[2017-11-10 10:18] LABS: RBC,URINE 0-2 /HPF (0-2)
[2017-11-10] MEDS ORDERED: CEPH500C5 PO (10:46)
[2017-11-10 11:26] VITALS: BP 167/76
== END 2017-11-10 12:24 ==
LOC: ER 07:51
DX: N39.0 Urinary tract infection, site not specified (principal); E78.00 Pure hypercholesterolemia, unspecified; I10 Essential (primary) hypertension; E11.9 Type 2 diabetes mellitus without complications; Z87.891 Personal history of nicotine dependence; Z89.612 Acquired absence of left leg above knee; Z89.611 Acquired absence of right leg above knee; Z79.899 Other long term (current) drug therapy; Z79.2 Long term (current) use of antibiotics
CPT/HCPCS: 36415; 51702; 80053; 81001; 85025; 87077; 87088; 87186; 96365; 99285; A4315; J0696; 99284

== ENCOUNTER 2017-11-14 17:41 | Inpatient (IN) | payer MEDICARE, OTHER, MEDICAID ==
[~2017-11-14] VITALS: Ht 152.4 cm; Wt 85.9 kg
[~2017-11-14 17:41] MED LIST changes: +CEPH500C5 PO
[2017-11-14] MEDS ORDERED: furosemide 10 MG/1 ML 10ml inj IV ONE (17:50)
[2017-11-14] MEDS ORDERED: nitroGLYCERIN-Tridil 50MG/D5W 250 ML IV ONE (17:50)
[2017-11-14 18:10] LABS: ABG BASE EXCESS -1.2 mmol/L (-2.0-3.0); ABG HCO3 26.5 mmol/L (22.0-26.0); ABG OXYGEN SATURATION 93.5 % (95-98); ABG PCO2 (T) 59.4 mmHg (35.0-48.0); ABG PH (T) 7.267 (7.350-7.450); ABG PO2 (T) 76.2 mmHg (83-108); ALLEN'S TEST Positive; FCOHb 0.6 % (0.5-1.5); FLOW 4 L/min; FMetHb 0.2 % (0.3-1.12); FO2Hb 92.8 % (94-100); TOTAL HEMOGLOBIN 10.9 G/dl (14.0-18.0)
[2017-11-14 18:27] LABS: BASOPHILS % (AUTO) 0.1 % (0-1); EOSINOPHILS # (AUTO) 0.5 X10'3 (0-0.9); EOSINOPHILS % (AUTO) 4.6 % (0-6); HEMATOCRIT 30.2 % (42.0-52.0); HEMOGLOBIN 9.9 g/dl (14.0-17.9); LYMPHOCYTES # (AUTO) 0.9 X10'3 (1.1-4.8); LYMPHOCYTES % (AUTO) 7.8 % (21-51); MEAN CORPUSCULAR HEMOGLOBIN 27.1 PG (27.0-31.0); MEAN CORPUSCULAR HGB CONC 32.9 % (33.0-36.5); MEAN CORPUSCULAR VOLUME 82.3 FL (78-98); MEAN PLATELET VOLUME 7.9 FL (7.4-10.4); MONOCYTES # (AUTO) 1.1 X10'3 (0-0.9); MONOCYTES % (AUTO) 9.3 % (2-12); NEUTROPHILS # (AUTO) 9.1 X10'3 (1.8-7.7); NEUTROPHILS % (AUTO) 78.2 % (42-75); PLATELET COUNT 216 X10'3 (140-440); RED BLOOD COUNT 3.67 X10'6 (4.70-6.10); RED CELL DISTRIBUTION WIDTH 16.4 % (11.5-14.5); WHITE BLOOD COUNT 11.7 X10'3 (4.5-11.0)
[2017-11-14 18:39] LABS: PARTIAL THROMBOPLASTIN TIME 28 SECONDS (22-32); PROTHROMBIN TIME 10.1 SECONDS (9.0-12.0)
[2017-11-14 18:52] LABS: LACTIC SEPSIS 0.3 MMOL/L (0.4-2.0)
[2017-11-14 18:53] LABS: ALANINE AMINOTRANSFERASE 15 U/L (12-78); ALBUMIN 2.8 G/DL (3.4-5.0); ALBUMIN/GLOBULIN RATIO 0.6 (1.1-1.5); ALKALINE PHOSPHATASE 69 IU/L (46-116); ANION GAP 11 (8-16); ASPARTATE AMINO TRANSFERASE 8 U/L (10-37); BILIRUBIN,TOTAL 0.4 MG/DL (0.1-1.0); BLOOD UREA NITROGEN 51 MG/DL (7-18); BUN/CREATININE RATIO 12.8 (5.4-32.0); CHLORIDE 104 MMOL/L (99-107); GLUCOSE 117 MG/DL (70-104); SODIUM 140 MMOL/L (135-145); TOTAL CARBON DIOXIDE 24.8 MMOL/L (24-32); TOTAL PROTEIN 7.4 G/DL (6.4-8.2); eGFR 15 ML/MIN
[2017-11-14 18:56] LABS: MAGNESIUM 2.4 MG/DL (1.5-2.4); PHOSPHORUS 5.5 MG/DL (2.3-4.5)
[2017-11-14 18:58] LABS: ACETAMINOPHEN < 2.0 UG/ML (10-30)
[2017-11-14] MEDS ORDERED: piperacillin/tazo 3.375gm/50ml 50 ML IV ONE (19:30)
[2017-11-14] MEDS ORDERED: vancomycin/NS 1 GM ADD-VANTAGE 250 ML IV ONE (19:30)
[2017-11-14 20:17] LABS: URINE AMPHETAMINE SCREEN NEGATIVE (Neg); URINE BARBITUATE SCREEN NEGATIVE (Neg); URINE BENZODIAZEPINES SCREEN NEGATIVE (Neg); URINE CANNABINOID SCREEN NEGATIVE (Neg); URINE COCAINE SCREEN NEGATIVE (Neg); URINE METHADONE SCREEN NEGATIVE (Neg); URINE OPIATE SCREEN POSITIVE (Neg); URINE PHENCYCLIDINE SCREEN NEGATIVE (Neg)
[2017-11-14] MEDS ORDERED: PROC-8 PO (20:24)
[2017-11-14] MEDS ORDERED: MAGN400O6 PO (20:27)
[2017-11-14] MEDS ORDERED: DULR RC (20:27)
[2017-11-14] MEDS ORDERED: NA P133E4 RC (20:27)
[2017-11-14 20:46] LABS: CLARITY,URINE TURBID (Clear); COLOR,URINE YELLOW (Yellow); GLUCOSE, URINE NEGATIVE (Neg); KETONES,URINE NEGATIVE (Neg); LEUKOCYTE ESTERASE ,URINE LARGE (Neg); NITRITES, URINE NEGATIVE (Neg); OCCULT BLOOD,URINE LARGE (Neg); PROTEIN,URINE >=300 mg/dl (Neg); UA COLLECTION TYPE FOLEY CATH; UROBILINOGEN,URINE 0.2 E.U/dL (0.2-1.0)
[2017-11-14] MEDS ORDERED: temazepam 15mg capsule PO PRN (21:00)
[2017-11-14 21:08] LABS: WBC,URINE TNTC /HPF (0-4)
[2017-11-14 21:09] LABS: BACTERIA,URINE 3+ /HPF (Neg); MUCUS STRANDS NONE SEEN /LPF (Neg); SQUAMOUS EPITHELIAL CELL,UR NONE SEEN /LPF (FEW)
[2017-11-14] MEDS ORDERED: glucagon, human recombinant 1mg kit SUBCUT PRN (22:20)
[2017-11-14] MEDS ORDERED: baclofen 10mg tablet PO PRN (22:20)
[2017-11-14] MEDS ORDERED: diphenhydrAMINE 50 mg/ml inj IV PRN (22:20)
[2017-11-14] MEDS ORDERED: acetaminophen 650mg rectal suppository RC PRN (22:20)
[2017-11-14] MEDS ORDERED: HYDROcodone/acetaminophen 5mg/325mg tablet PO PRN (22:20)
[2017-11-14] MEDS ORDERED: dextrose ORAL solution 15 GM/59 ML bottle PO PRN ×2 (22:20)
[2017-11-14] MEDS ORDERED: HYDROmorphone inj. 0.5 MG/0.5 ML DISP.SYRIN IV PRN ×2 (22:20)
[2017-11-14] MEDS ORDERED: acetaminophen 325mg tablet PO PRN ×2 (22:20)
[2017-11-14] MEDS ORDERED: mag hydrox/Alum hydrox/simeth 30ml oral suspension PO PRN (22:20)
[2017-11-14] MEDS ORDERED: magnesium hydroxide 30ml (MOM) UD suspension PO PRN (22:20)
[2017-11-14] MEDS ORDERED: morphine 4 MG/ML inj SYRINge IV PRN ×2 (22:20)
[2017-11-14] MEDS ORDERED: metoclopramide 5 mg/ml inj IV PRN (22:20)
[2017-11-14] MEDS ORDERED: ondansetron/PF 4mg/2ml inj IV PRN (22:20)
[2017-11-14] MEDS ORDERED: diphenhydrAMINE 25mg capsule PO PRN (22:20)
[2017-11-14] MEDS ORDERED: HYDROcodone/acetaminophen 10/325mg tab PO PRN (22:20)
[2017-11-14] MEDS ORDERED: insulin Lispro (HumaLOG) vial - multi-dose SQ SCH (22:20)
[2017-11-14] MEDS ORDERED: MESSAGE TO PHARMACY PO ONE (22:20)
[2017-11-14] MEDS ORDERED: dextrose 50%-water 50ml dispensing syringe IV PRN ×2 (22:20)
[2017-11-14] MEDS ORDERED: bisacodyl 10mg suppository rectal RC PRN (22:20)
[2017-11-14] MEDS ORDERED: ondansetron 4mg rapidly disintigrating tab PO PRN (22:25)
[2017-11-14] MEDS: normal saline 1000ml 1,000 ML IV SCH (22:39)
[2017-11-14] MEDS ORDERED: azithromycin/NS 500mg/250ml 250 ML IV SCH (22:39)
[2017-11-14] MEDS: CefTRIAXone/D5W-Rocephin 1gm 50 ML IV SCH (22:40)
[2017-11-14] MEDS: pantoprazole 40 MG vial IV SCH (22:47)
[2017-11-15] VITALS (19 sets, daily range): BP systolic 74–171; BP diastolic 32–58
[2017-11-15] MEDS ORDERED: non-formulary drug (Ondansetron Hcl (Zofran) 1 TAB) PO SCH
[2017-11-15 00:02] LABS: LIPASE < 50 U/L (73-393); MAGNESIUM 2.4 MG/DL (1.5-2.4)
[2017-11-15 00:40] LABS: HEMOGLOBIN A1C 7.9 % (4.5-6.2)
[2017-11-15 01:30] LABS: ALANINE AMINOTRANSFERASE 12 U/L (12-78); ALBUMIN 2.9 G/DL (3.4-5.0); ALBUMIN/GLOBULIN RATIO 0.6 (1.1-1.5); ALKALINE PHOSPHATASE 77 IU/L (46-116); ANION GAP 15 (8-16); BILIRUBIN,TOTAL 0.6 MG/DL (0.1-1.0); BLOOD UREA NITROGEN 52 MG/DL (7-18); BUN/CREATININE RATIO 12.3 (5.4-32.0); CHLORIDE 103 MMOL/L (99-107); CREATININE 4.24 MG/DL (0.60-1.10); GLUCOSE 140 MG/DL (70-104); SODIUM 141 MMOL/L (135-145); TOTAL CARBON DIOXIDE 23.2 MMOL/L (24-32); TOTAL PROTEIN 8.1 G/DL (6.4-8.2); eGFR 14 ML/MIN
[2017-11-15 01:34] LABS: ASPARTATE AMINO TRANSFERASE 22 U/L (10-37); POTASSIUM 4.2 MMOL/L (3.5-5.1)
[2017-11-15 02:20] LABS: ABG BASE EXCESS -4.6 mmol/L (-2.0-3.0); ABG HCO3 22.2 mmol/L (22.0-26.0); ABG PCO2 (T) 47.7 mmHg (35.0-48.0); ABG PH (T) 7.284 (7.350-7.450); ABG PO2 (T) 59.3 mmHg (83-108); ALLEN'S TEST Positive; FMetHb 0.1 % (0.3-1.12); FO2Hb 88.9 % (94-100); MINUTE VOLUME 15 L/min; PATIENT TEMPERATURE 36.7; RESPIRATORY RATE 14 b/min; RESPIRATORY RATE (OBSERVED) 14 b/min; TIDAL VOLUME 918 mL
[2017-11-15 02:24] LABS: BASOPHILS % (AUTO) 0 % (0-1); EOSINOPHILS # (AUTO) 0.3 X10'3 (0-0.9); EOSINOPHILS % (AUTO) 1.8 % (0-6); HEMATOCRIT 30.7 % (42.0-52.0); HEMOGLOBIN 10.1 g/dl (14.0-17.9); LYMPHOCYTES # (AUTO) 0.4 X10'3 (1.1-4.8); LYMPHOCYTES % (AUTO) 2.7 % (21-51); MEAN CORPUSCULAR HEMOGLOBIN 27.4 PG (27.0-31.0); MEAN CORPUSCULAR VOLUME 83.1 FL (78-98); MEAN PLATELET VOLUME 8.5 FL (7.4-10.4); MONOCYTES # (AUTO) 1.1 X10'3 (0-0.9); MONOCYTES % (AUTO) 6.9 % (2-12); NEUTROPHILS # (AUTO) 13.9 X10'3 (1.8-7.7); NEUTROPHILS % (AUTO) 88.6 % (42-75); PLATELET COUNT 236 X10'3 (140-440); RED BLOOD COUNT 3.69 X10'6 (4.70-6.10); RED CELL DISTRIBUTION WIDTH 16.1 % (11.5-14.5); WHITE BLOOD COUNT 15.6 X10'3 (4.5-11.0)
[2017-11-15] MEDS: normal saline 1000ml 1,000 ML IV SCH ×3 (05:43→20:45)
[2017-11-15] MEDS ORDERED: venlafaxine XR 37.5mg cap (Q24H) PO SCH (08:00)
[2017-11-15] MEDS: loratadine 10mg tablet PO SCH (08:00)
[2017-11-15] MEDS ORDERED: gabapentin 300mg capsule PO SCH (08:00)
[2017-11-15] MEDS: lactobacillus rhamnosus 10,000 MMU CELLS/CAPSULE PO SCH ×2 (08:00→20:00)
[2017-11-15] MEDS ORDERED: amLODIPine 2.5mg tablet PO SCH (08:00)
[2017-11-15] MEDS ORDERED: docusate sod 100mg capsule PO SCH (08:00)
[2017-11-15] MEDS: CefTRIAXone/D5W-Rocephin 1gm 50 ML IV SCH (08:10)
[2017-11-15] MEDS: aspirin 81mg tab.chew PO SCH (08:10)
[2017-11-15] MEDS: pantoprazole 40 MG vial IV SCH (08:10)
[2017-11-15] MEDS ORDERED: amLODIPine 5mg tablet PO SCH (14:46)
[2017-11-15] MEDS ORDERED: cefepime 1GM/NS ADD-VANTAGE 100 ML IV SCH (15:30)
[2017-11-15] MEDS ORDERED: metroNIDAZOLE-Flagyl 500mg/NS 100 ML IV SCH (15:30)
[2017-11-15] MEDS ORDERED: vancomycin/NS 1 GM ADD-VANTAGE 250 ML IV SCH (15:30)
[2017-11-15] MEDS ORDERED: vancomycin/NS 1 GM ADD-VANTAGE 250 ML IV PRN (15:50)
[2017-11-15] MEDS: vancomycin/NS 1 GM ADD-VANTAGE 250 ML IV SCH ×2 (15:57→17:59)
[2017-11-15] MEDS ORDERED: vancomycin inj 1,250 MG in normal saline 250ml IV soln 250 ML IV PRN (16:00)
[2017-11-15] MEDS: albuterol 2.5 MG/3 ML nebule NEB SCH ×2 (19:32→23:22)
[2017-11-15] MEDS: cefepime 1GM/NS ADD-VANTAGE 100 ML IV SCH (20:06)
[2017-11-15] MEDS: heparin, porcine 5000 units/ml vial SQ SCH (20:06)
[2017-11-15] MEDS ORDERED: atorvastatin 20mg tablet PO SCH (21:00)
[2017-11-15] MEDS ORDERED: non-formulary drug (Atorvastatin Calcium* (Lipitor*) 1 TABLET) PO SCH (21:00)
[2017-11-15] MEDS: metroNIDAZOLE-Flagyl 500mg/NS 100 ML IV SCH (22:13)
[2017-11-16] MEDS: hydrALAZINE 20mg/ml inj. IV PRN ×2 (00:40→05:13)
[2017-11-16 02:00] VITALS: BP 162/58
[2017-11-16 03:00] VITALS: BP 172/57
[2017-11-16] MEDS ORDERED: VANCOMYCIN LEVEL IV SCH (03:00)
[2017-11-16] MEDS: albuterol 2.5 MG/3 ML nebule NEB SCH ×6 (03:09→23:00)
[2017-11-16 04:00] VITALS: BP 186/56
[2017-11-16 05:00] VITALS: BP 174/57
[2017-11-16 05:49] LABS: BASOPHILS % (AUTO) 0 % (0-1); EOSINOPHILS # (AUTO) 0.3 X10'3 (0-0.9); EOSINOPHILS % (AUTO) 1.4 % (0-6); HEMATOCRIT 31.1 % (42.0-52.0); HEMOGLOBIN 10.4 g/dl (14.0-17.9); LYMPHOCYTES # (AUTO) 0.4 X10'3 (1.1-4.8); LYMPHOCYTES % (AUTO) 1.9 % (21-51); MEAN CORPUSCULAR HEMOGLOBIN 27.3 PG (27.0-31.0); MEAN CORPUSCULAR HGB CONC 33.4 % (33.0-36.5); MEAN CORPUSCULAR VOLUME 81.9 FL (78-98); MEAN PLATELET VOLUME 7.7 FL (7.4-10.4); MONOCYTES # (AUTO) 1.2 X10'3 (0-0.9); MONOCYTES % (AUTO) 5.7 % (2-12); NEUTROPHILS # (AUTO) 19.4 X10'3 (1.8-7.7); PLATELET COUNT 222 X10'3 (140-440); RED CELL DISTRIBUTION WIDTH 16.2 % (11.5-14.5); WHITE BLOOD COUNT 21.3 X10'3 (4.5-11.0)
[2017-11-16 06:25] LABS: ALANINE AMINOTRANSFERASE 13 U/L (12-78); ALBUMIN 2.6 G/DL (3.4-5.0); ALBUMIN/GLOBULIN RATIO 0.5 (1.1-1.5); ALKALINE PHOSPHATASE 77 IU/L (46-116); ANION GAP 22 (8-16); ASPARTATE AMINO TRANSFERASE 15 U/L (10-37); BILIRUBIN,TOTAL 0.4 MG/DL (0.1-1.0); BLOOD UREA NITROGEN 58 MG/DL (7-18); BUN/CREATININE RATIO 12.1 (5.4-32.0); CALCIUM 8.6 MG/DL (8.5-10.1); CHLORIDE 108 MMOL/L (99-107); GLUCOSE 170 MG/DL (70-104); POTASSIUM 3.4 MMOL/L (3.5-5.1); SODIUM 147 MMOL/L (135-145); TOTAL CARBON DIOXIDE 17.1 MMOL/L (24-32); TOTAL PROTEIN 7.9 G/DL (6.4-8.2); eGFR 12 ML/MIN
[2017-11-16 07:00] VITALS: BP 174/57
[2017-11-16] MEDS: pantoprazole 40 MG vial IV SCH (07:12)
[2017-11-16] MEDS: heparin, porcine 5000 units/ml vial SQ SCH (07:13)
[2017-11-16] MEDS: aspirin 81mg tab.chew PO SCH (07:13)
[2017-11-16] MEDS: loratadine 10mg tablet PO SCH (07:13)
[2017-11-16] MEDS: lactobacillus rhamnosus 10,000 MMU CELLS/CAPSULE PO SCH ×2 (07:13→20:00)
[2017-11-16 07:26] LABS: ANISOCYTOSIS 1+; MICROCYTOSIS 1+; PLATELET ESTIMATE NORMAL; TOTAL CELLS COUNTED 100
[2017-11-16] MEDS: cefepime 1GM/NS ADD-VANTAGE 100 ML IV SCH (10:00)
[2017-11-16] MEDS ORDERED: morphine 10mg/ml inj. IV PRN (10:30)
[2017-11-16] MEDS ORDERED: LORazepam 2 mg/ml vial IV PRN (10:30)
[2017-11-16] MEDS ORDERED: morphine 10mg/0.5ml (conc. morphine) oral syringe PO PRN (10:30)
[2017-11-16] MEDS: metroNIDAZOLE-Flagyl 500mg/NS 100 ML IV SCH (11:00)
[2017-11-16] MEDS ORDERED: morphine 4 MG/ML inj SYRINge IV PRN (17:15)
[2017-11-16 19:00] VITALS: BP 169/69
[2017-11-16] MEDS ORDERED: docusate sod 100mg capsule PO SCH (20:00)
== END 2017-11-17 00:46 | disposition expired | DRG 871 ==
LOC: ER 17:41 → ED HOLD 22:18 → PCU 3S 23:54
PROVIDERS: ADMIT Family Medicine; ATTEND Internal Medicine
PROC: 5A09457 Assistance with Respiratory Ventilation, 24-96 Consecutive Hours, Continuous Positive Airway Pressure (ICD-10-PCS; principal; 2017-11-14)
DX: A41.9 Sepsis, unspecified organism (principal); J18.1 Lobar pneumonia, unspecified organism; J96.01 Acute respiratory failure with hypoxia; G93.40 Encephalopathy, unspecified; N17.9 Acute kidney failure, unspecified; N39.0 Urinary tract infection, site not specified; N18.4 Chronic kidney disease, stage 4 (severe); T17.890A Other foreign object in other parts of respiratory tract causing asphyxiation, initial encounter; D64.9 Anemia, unspecified; E11.22 Type 2 diabetes mellitus with diabetic chronic kidney disease; E78.00 Pure hypercholesterolemia, unspecified; E86.0 Dehydration; F32.9 Major depressive disorder, single episode, unspecified; I12.9 Hypertensive chronic kidney disease with stage 1 through stage 4 chronic kidney disease, or unspecified chronic kidney disease; X58.XXXA Exposure to other specified factors, initial encounter; Z51.5 Encounter for palliative care; Z66 Do not resuscitate; Z74.01 Bed confinement status; Z89.612 Acquired absence of left leg above knee; Z89.611 Acquired absence of right leg above knee; Z79.899 Other long term (current) drug therapy; Z86.14 Personal history of Methicillin resistant Staphylococcus aureus infection; Y93.89 Activity, other specified; Y92.89 Other specified places as the place of occurrence of the external cause; Y99.8 Other external cause status
CPT/HCPCS: 36415; 36600; 70450; 71045; 80053; 80202; 80305; 80329; 81001; 82140; 82803; 82948; 83036; 83605; 83690; 83735; 83880; 84100; 84439; 84443; 84484; 85018; 85025; 85610; 85730; 87040; 87088; 94640; 94660; 94760; 96365; 96368; 96375; 99291; A4315; A6212; A6213; A6250; A9270; C9113; J0360; J0692; J0696; J1644; J1940; J2270; J2543; J3370; J3490; J7030